=== PATIENT | male | born 1960 | race Caucasian/White ===

== ENCOUNTER 2018-10-10 10:30 | Inpatient (IN) | payer BC ==
[~2018-10-10] VITALS: Ht 180.3 cm; Wt 80.0 kg
--- NOTE | 2018-10-10 11:37 | HP ---
DATE OF ADMISSION: 10/10/2018 IDENTIFYING DATA: The patient is a 57-year-old male being admitted to the hospital with apparent fat igue, mildly abnormal liver tests, markedly reduced appetite. HISTORICAL EVENTS: The patient was initially evaluated ____ 10/04/2018 when he admitted to a 23-week history of modest fatigue with increasing blood sugars in the excess of 200. He initially lost abou t 7 pounds during his last 2 months, unaccompanied by orthostatic dizziness, lightheadedness. He had no exertional shortness of breath, chest pain, palpitations, no leg edema and at that time had no ab dominal pain. His examination with respect to cardiopulmonary and GI exam was unrevealing. Laborato ry studies I obtained on 10/04/2018 included random sugar of 191. His creatinine was 1.6. Electroly kacie were normal. ALT and AST were 143 and 160 respectively. Alkaline phosphatase was normal. Bilir ubin was normal. Hemoglobin A1c had increased from 6.4 to 7.4. Thyroid function was normal. CBC wa s normal at differential. Platelet count was normal. After seeing the latter laboratory tests, I batista d the opportunity to include a liver panel and his ALT fell to 79, AST fell to 54 and acute hepatitis panel was unrevealing. Close questioning revealed the possibility that he was drinking alcohol. Ad ditional questioning this evening revealed him to having had little solid or liquid intake. Appetite remained markedly reduced. He had no vomiting, but had a sense of tenesmus with frequent liquid sto ols without symptoms of gastrointestinal bleeding. He continued to be weak and denied any pathologic cardiopulmonary symptoms. He denied dysuria, hematuria, frequency, flank pain, fever or chills. PAST MEDICAL HISTORY: Includes: 1. Diabetes, adult onset, first detected in 05/2007. 2. History of pancreatitis in 11/2010 with the antecedent modest intake of alcohol. 3. Hyperlipidemia. 4. Hypertension. 5. History of nephrolithiasis with transient obstruction of his right kidney on 03/25/2018. 6. History of bladder stone, requiring cystoscope and retrograde study. Stone was removed at that t vinh. He did have evidence again of mild left hydronephrosis. This resolved after the stone was renée mike. 7. Vitamin D deficiency. SOCIAL HISTORY: . He is an assistant prosecuting attorney. He does drink alcohol. He does not smoke. PRESENT MEDICATIONS: Include: 1. Baby aspirin 81 mg per day. 2. Xanax 0.5 t.i.d. p.r.n. 3. Metoprolol XL 100 per day. 4. Tamsulosin 0.4 per day. 5. Zestril 20 mg per day. ALLERGIES: 1. AMBIEN. 2, ____ PHYSICAL EXAMINATION: GENERAL: Chronically ill-appearing male. VITAL SIGNS: BP 121/78, pulse 80, respirations were 18. He was afebrile. HEENT: Eyes: Extraocular muscles were full. Nose, mouth and throat are normal. NECK: Supple. There was no jugular venous distention, thyroid enlargement or adenopathy. LUNGS: Clear. HEART: Rhythm regular. No murmur. ABDOMEN: Slight distention. No organomegaly. Equivocal 1+ epigastric tenderness. No lower quadran t tenderness. EXTREMITIES: No edema. Calves are nontender. NEUROLOGIC: No lateralizing motor weakness. IMPRESSION: 1. Modest fatigue. Transient abnormal liver tests are improving. I think likely related to alcohol . I think there is a major component of depression but given tenesmus and still frequent loose stool s, I worry about colitis. 2. Diabetes, controlled optimal. We will resume metformin. PLAN: Admit. CT of the abdomen and pelvis will be needed. GI consultation will be obtained. Psych iatric evaluation may be needed given some recent concerns with my discussion with him that he felt l minnie living condition was unimportant. Dictated By: BERNARD LUNA/LETICIA Conf#: [id number] DID#: [id number]
[2018-10-10 11:41] VITALS: BP 133/77; PULSE 70; RESP 18
[2018-10-10 11:47] VITALS: Ht 180.3 cm; Wt 80.0 kg
[2018-10-10] MEDS ORDERED: ZOLPIDEM 5 MG TAB PO PRN (13:00)
[2018-10-10] MEDS ORDERED: NACL 0.9% 3 ML SYG IV SCH (13:00)
[2018-10-10] MEDS ORDERED: LISINOPRIL 20 MG TAB PO SCH (13:30)
[2018-10-10] MEDS: ALPRAZOLAM 0.5 MG TAB PO PRN (16:00)
[2018-10-10] MEDS: METOPROLOL (XL) 50 MG TAB PO SCH ×2 (16:00→22:41)
[2018-10-10] MEDS: SOD CHLORIDE 0.9% 1,000 ML IV SCH (16:01)
[2018-10-10] MEDS: INSULIN ASPART [NOVOLOG] 3 ML PEN SC SCH (17:25)
[2018-10-10] MEDS ORDERED: MAGNESIUM SULFATE 4 GM/100 ML 100 ML IVPB ONE (18:00)
[2018-10-10] MEDS ORDERED: METOCLOPRAMIDE 10 MG TAB PO PRN (18:30)
[2018-10-10] MEDS ORDERED: IOHEXOL 14.3 MG(I)/ML (ADULT) BTL PO ONE (18:30)
[2018-10-10 19:59] VITALS: BP 139/84; PULSE 57; RESP 18
[2018-10-10] MEDS: TAMSULOSIN (SR) 0.4 MG CAP PO SCH (20:17)
--- NOTE | 2018-10-10 21:03 | CONS ---
DATE OF ADMISSION: 10/10/2018 DATE OF CONSULTATION: 10/10/2018 TYPE OF CONSULTATION: Preoperative gastroenterology. Dear Dr. Sanders, Thank you for asking me to see Mr. Gu in GI consultation. 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 He says this past 2 weeks, he has been having i ncreasing history of vomiting, mostly whenever he drinks water, even after eating food and no history of vomiting blood. Usually vomiting can occur any time including an empty stomach and after eating also, vomiting can occur with no history of having any blood. He has got diarrhea for the past 2 wee ks. Sometimes, he has tenesmus. When he goes to bathroom, no stool comes out, just a feeling of hav ing to have a bowel movement. No rectal bleeding, no bloody stool. He drinks alcohol 2 to 3 times a week. He denies that he is an alcoholic. He has history of diabetes and he also has a history of having pancreatitis in 2010, probably due to alcoholic pancreatitis, dyslipidemia, hypertension, history of nephrolithiasis, and he had a right ki dney surgery in 2018. He also has a history of bladder stone. MEDICATIONS: Of concern prior to the admission, he was on: 1. Aspirin. 2. Xanax. 3. Metoprolol. 4. Tamsulosin. 5. Zestril. PAST MEDICAL HISTORY: He has no history of jaundice, no history of prior colonoscopy. PAST SURGICAL HISTORY: As for the surgeries, I am concerned that as mentioned above, he had a kidney surgery for obstructed stone and infection. REVIEW OF SYSTEMS: Also essentially as mentioned above. PHYSICAL EXAMINATION: GENERAL: The patient is a 57-year-old white gentleman who at this time is pretty alert, is well buil t, is afebrile. CARDIOVASCULAR: Normal heart sounds. RESPIRATORY: Normal breath sounds. ABDOMEN: Shows soft abdomen, no palpable masses, no tenderness, no distention. VITAL SIGNS: Temperature 98.8, pulse is 70, blood pressure 133/77. LABORATORY WORKUP: WBC count 9400, hemoglobin 13.7. The serum AST is 469, ALT is 274, alkaline phos phatase is 90. Amylase is 78. Lipase is 764. Ferritin 2050. Vitamin B12 1000. TSH is 1.030, pota ssium 3.9, creatinine 2.74, BUN 47. IMAGING STUDIES: The chest x-ray shows no acute process. Ultrasound of the upper abdomen shows echo genic course liver which could be hepatic steatosis. Underlying hepatocellular disease cannot be exc luded. No biliary dilatation, no cholelithiasis. CLINICAL IMPRESSION: The patient presenting with history of persistent vomiting and persistent diarr hea. It is quite possible that persistent vomiting could be secondary to diabetic gastroparesis. Ce rtainly, gastroesophageal reflux disease, peptic ulcer disease must be considered. Dayna of the es ophagus should be considered. As far as the diarrhea is concerned, inflammatory bowel disease is a good possibility. Colorectal ne oplasm should be considered. I doubt if we are dealing with C. difficile colitis, but certainly C. d ifficile in the stool will be examined. Based on the fact that he has got abnormal liver functions and elevated lipase, it is quite possible we may be dealing with alcoholic pancreatitis and alcoholic liver disease. He probably has alcoholic cirrhosis with steatohepatitis. Viral hepatitis have been negative so viral etiology of the hepatit is is unlikely. He has a history of hypertension and diabetes. PLAN: At the outset, I recommend CAT scan of the upper abdomen and pelvis to rule out pancreatitis, cirrhosis, rule out choledocholithiasis. MRCP will also be ordered to rule out choledocholithiasis and biliary tract disease. MRCP will be really helpful to evaluate hepatobiliary pancreatic system. Stool for C. difficile will be obtained. The patient will probably need an EGD and colonoscopy. Meanwhile, Protonix can be continued and symp tomatic treatment with Reglan can be can be done and I will be happy to follow this patient with you. Once again, doctor, thank you for this consultation. Dictated By: SHANNA KHALIL MD NC/NTS Conf#: [id number] DID#: [id number] CC: BERNARD SANDERS MD;*EndCC*
[2018-10-11 01:50] VITALS: BP 137/75; PULSE 55; RESP 18
[2018-10-11] MEDS: SOD CHLORIDE 0.9% 1,000 ML IV SCH (02:00)
[2018-10-11] MEDS: ACCU-CHEK XX SCH (02:00)
[2018-10-11] MEDS ORDERED: POTASSIUM CHLORIDE (SR) 20 MEQ TAB PO ONE (05:34)
[2018-10-11] MEDS ORDERED: PANTOPRAZOLE 40 MG INJ IV SCH (06:00)
[2018-10-11] MEDS: PANTOPRAZOLE (EC) 40 MG TAB PO SCH (06:15)
[2018-10-11 07:11] VITALS: BP 117/67; PULSE 52; RESP 14
[2018-10-11] MEDS: METOPROLOL (XL) 50 MG TAB PO SCH ×2 (09:00→21:09)
[2018-10-11] MEDS: INSULIN ASPART [NOVOLOG] 3 ML PEN SC SCH ×3 (09:01→17:53)
--- NOTE | 2018-10-11 11:19 | PN ---
Date/Time of Note Date/Time of Note DATE: 10/11/18 TIME: 11:07 Assessment/Plan VTE Prophylaxis Risk score (from [facility])>0 risk: 2 SCD applied (from [facility]): No SCD contraindicated: low risk/ambulating Pharmacological prophylaxis: other Pharm contraindication: other Lines/Catheters IV Catheter Type (from [facility]): Peripheral IV Urinary Cath still in place: No Assessment/Plan Hospital Course 1. Diarrhea. He continues to have profuse diarrhea. He denies abdominal pain . Stool for culture and C. difficile toxin are pending. 2. Pancreatitis with elevated lipase level . Pancreatic insufficiency could be causing his diarrhea 3.. Elevated liver enzymes, they are lower today. High iron, iron saturation, and ferritin. Could be consistent with hemochromatosis. 4. Anemia, his hemoglobin is drifting down , he has not had any obvious GI blee ding. I suspect the lower hemoglobin today is due to rehydration. 5. Acute renal failure. His urine sodium is low and this is consistent with dehydration/volume depletion. He is getting IV fluids to replete him. Potassium and magnesium are low and have been replaced. Result Diagram: 10/11/18 0429 10/11/18 0428 Results 24hrs Laboratory Tests Test 10/10/18 14:10 10/10/18 17:32 10/10/18 19:09 10/10/18 20:54 White Blood Count 9.4 Red Blood Count 4.24 L Hemoglobin 13.7 L Hematocrit 39.3 L Mean Corpuscular Volume 92.7 Mean Corpuscular 32.3 Hemoglobin Mean Corpuscular 34.9 Hemoglobin Concent Red Cell Distribution 13.2 Width Platelet Count 360 Mean Platelet Volume 9.3 Immature Granulocytes % 0.300 Neutrophils % 74.1 Lymphocytes % 17.1 Monocytes % 6.6 Eosinophils % 1.3 Basophils % 0.6 Nucleated Red Blood 0.0 Cells % Immature Granulocytes # 0.030 Neutrophils # 7.0 Lymphocytes # 1.6 Monocytes # 0.6 Eosinophils # 0.1 Basophils # 0.1 Nucleated Red Blood 0.0 Cells # Erythrocyte 5 Sedimentation Rate Sodium Level 141 Potassium Level 3.9 Chloride Level 105 Carbon Dioxide Level 25 Anion Gap 11 Blood Urea Nitrogen 47 H Creatinine 2.74 H Est Glomerular Filtrat 24 L Rate mL/min Glucose Level 124 Calcium Level 8.7 Phosphorus Level 4.3 Magnesium Level 1.1 L Iron Level 171 H Total Iron Binding 177 L Capacity Percent Iron Saturation 97 H Ferritin 2050.0 H Total Bilirubin 0.6 Direct Bilirubin 0.00 Indirect Bilirubin 0.6 Aspartate Amino 469 H Transf (AST/SGOT) Alanine 274 H Aminotransferase (ALT/SG PT) Alkaline Phosphatase 90 Total Protein 6.5 Albumin 3.4 Globulin 3.10 Albumin/Globulin Ratio 1.09 Amylase Level 78 Lipase 764 H Alpha Fetoprotein 1.39 Carcinoembryonic Antigen 3.8 CA 19-9 Antigen 59.6 H Vitamin B12 Level > 1000 H Thyroid Stimulating 1.030 Hormone (TSH) Ethyl Alcohol Level < 10.0 H Bedside Glucose 138 128 Prothrombin Time 13.1 Prothrombin Time Ratio 1.0 INR International 0.98 Normalized Ratio Activated 27.8 Partial Thromboplast Time Test 10/10/18 22:45 10/10/18 23:01 10/11/18 03:58 10/11/18 04:28 Urine Color YELLOW Urine Clarity CLEAR Urine pH 6.0 Urine Specific Peck 1.010 Urine Ketones NEGATIVE Urine Nitrite NEGATIVE Urine Bilirubin NEGATIVE Urine Urobilinogen NEGATIVE Urine Leukocyte Esterase NEGATIVE Urine Hemoglobin NEGATIVE Urine Random Creatinine 87.51 Urine Random Sodium 23 L Urine Protein/Creatinine 0.15 Ratio Urine Glucose NEGATIVE Urine Total Protein 14.0 H Stool Occult Blood NEGATIVE Magnesium Level 2.6 #H 2.2 Bedside Glucose 140 Sodium Level 137 Potassium Level 2.7 *L Chloride Level 105 Carbon Dioxide Level 20 L Anion Gap 12 Blood Urea Nitrogen 35 #H Creatinine 2.07 H Est Glomerular Filtrat 33 L Rate mL/min Glucose Level 125 Calcium Level 7.8 L Phosphorus Level 2.8 Ferritin 1680.0 H Total Bilirubin 1.7 H Direct Bilirubin 0.00 Indirect Bilirubin 1.7 H Aspartate Amino 252 H Transf (AST/SGOT) Alanine 208 H Aminotransferase (ALT/SG PT) Alkaline Phosphatase 71 Total Protein 5.7 L Albumin 2.8 L Globulin 2.90 Albumin/Globulin Ratio 0.96 Test 10/11/18 04:29 10/11/18 08:41 White Blood Count 7.3 # Red Blood Count 3.74 L Hemoglobin 11.8 L Hematocrit 34.6 L Mean Corpuscular Volume 92.5 Mean Corpuscular 31.6 Hemoglobin Mean Corpuscular 34.1 Hemoglobin Concent Red Cell Distribution 13.3 Width Platelet Count 302 Mean Platelet Volume 9.6 Immature Granulocytes % 0.600 H Neutrophils % 55.4 Lymphocytes % 31.4 Monocytes % 8.3 Eosinophils % 3.6 Basophils % 0.7 Nucleated Red Blood 0.0 Cells % Immature Granulocytes # 0.040 H Neutrophils # 4.0 Lymphocytes # 2.3 Monocytes # 0.6 Eosinophils # 0.3 Basophils # 0.1 Nucleated Red Blood 0.0 Cells # Hemoglobin A1c 6.8 H Iron Level 135 Total Iron Binding 175 L Capacity Percent Iron Saturation 77 H Bedside Glucose 118 Subjective 24 Hr Interval Summary Free Text/Dictation This patient is being seen in medical follow-up. He is awake and alert. He does have diarrhea which is profuse and frequent. He denies abdominal pain. He does complain of left ankle pain. Respiratory: no complaints Cardiovascular: no complaints Gastrointestinal: decreased appetite, diarrhea Genitourinary: no complaints Musculoskeletal: no complaints Skin: no complaints Neurologic: no complaints Exam/Review of Systems Exam Vitals Vital Signs Date Temp Pulse Resp B/P (MAP) Pulse Ox O2 O2 Flow FiO2 Time Delivery Rate 10/11/18 98.0 52 14 117/67 100 Room Air 07:11 (84) Intake and Output 10/10/18 10/10/18 10/11/18 1515:00 23:00 07:00 IntakeIntake Total 2080 ml 900 ml BalanceBalance 2080 ml 900 ml Constitutional: alert, oriented, frail Respiratory: clear to auscultation Cardiovascular: regular rate and rhythm Gastrointestinal: soft, non-tender, bowel sounds Musculoskeletal: nl extremities to inspection Results Results 24hrs Laboratory Tests Test 10/10/18 14:10 10/10/18 17:32 10/10/18 19:09 10/10/18 20:54 White Blood Count 9.4 Red Blood Count 4.24 L Hemoglobin 13.7 L Hematocrit 39.3 L Mean Corpuscular Volume 92.7 Mean Corpuscular 32.3 Hemoglobin Mean Corpuscular 34.9 Hemoglobin Concent Red Cell Distribution 13.2 Width Platelet Count 360 Mean Platelet Volume 9.3 Immature Granulocytes % 0.300 Neutrophils % 74.1 Lymphocytes % 17.1 Monocytes % 6.6 Eosinophils % 1.3 Basophils % 0.6 Nucleated Red Blood 0.0 Cells % Immature Granulocytes # 0.030 Neutrophils # 7.0 Lymphocytes # 1.6 Monocytes # 0.6 Eosinophils # 0.1 Basophils # 0.1 Nucleated Red Blood 0.0 Cells # Erythrocyte 5 Sedimentation Rate Sodium Level 141 Potassium Level 3.9 Chloride Level 105 Carbon Dioxide Level 25 Anion Gap 11 Blood Urea Nitrogen 47 H Creatinine 2.74 H Est Glomerular Filtrat 24 L Rate mL/min Glucose Level 124 Calcium Level 8.7 Phosphorus Level 4.3 Magnesium Level 1.1 L Iron Level 171 H Total Iron Binding 177 L Capacity Percent Iron Saturation 97 H Ferritin 2050.0 H Total Bilirubin 0.6 Direct Bilirubin 0.00 Indirect Bilirubin 0.6 Aspartate Amino 469 H Transf (AST/SGOT) Alanine 274 H Aminotransferase (ALT/SG PT) Alkaline Phosphatase 90 Total Protein 6.5 Albumin 3.4 Globulin 3.10 Albumin/Globulin Ratio 1.09 Amylase Level 78 Lipase 764 H Alpha Fetoprotein 1.39 Carcinoembryonic Antigen 3.8 CA 19-9 Antigen 59.6 H Vitamin B12 Level > 1000 H Thyroid Stimulating 1.030 Hormone (TSH) Ethyl Alcohol Level < 10.0 H Bedside Glucose 138 128 Prothrombin Time 13.1 Prothrombin Time Ratio 1.0 INR International 0.98 Normalized Ratio Activated 27.8 Partial Thromboplast Time Test 10/10/18 22:45 10/10/18 23:01 10/11/18 03:58 10/11/18 04:28 Urine Color YELLOW Urine Clarity CLEAR Urine pH 6.0 Urine Specific Peck 1.010 Urine Ketones NEGATIVE Urine Nitrite NEGATIVE Urine Bilirubin NEGATIVE Urine Urobilinogen NEGATIVE Urine Leukocyte Esterase NEGATIVE Urine Hemoglobin NEGATIVE Urine Random Creatinine 87.51 Urine Random Sodium 23 L Urine Protein/Creatinine 0.15 Ratio Urine Glucose NEGATIVE Urine Total Protein 14.0 H Stool Occult Blood NEGATIVE Magnesium Level 2.6 #H 2.2 Bedside Glucose 140 Sodium Level 137 Potassium Level 2.7 *L Chloride Level 105 Carbon Dioxide Level 20 L Anion Gap 12 Blood Urea Nitrogen 35 #H Creatinine 2.07 H Est Glomerular Filtrat 33 L Rate mL/min Glucose Level 125 Calcium Level 7.8 L Phosphorus Level 2.8 Ferritin 1680.0 H Total Bilirubin 1.7 H Direct Bilirubin 0.00 Indirect Bilirubin 1.7 H Aspartate Amino 252 H Transf (AST/SGOT) Alanine 208 H Aminotransferase (ALT/SG PT) Alkaline Phosphatase 71 Total Protein 5.7 L Albumin 2.8 L Globulin 2.90 Albumin/Globulin Ratio 0.96 Test 10/11/18 04:29 10/11/18 08:41 White Blood Count 7.3 # Red Blood Count 3.74 L Hemoglobin 11.8 L Hematocrit 34.6 L Mean Corpuscular Volume 92.5 Mean Corpuscular 31.6 Hemoglobin Mean Corpuscular 34.1 Hemoglobin Concent Red Cell Distribution 13.3 Width Platelet Count 302 Mean Platelet Volume 9.6 Immature Granulocytes % 0.600 H Neutrophils % 55.4 Lymphocytes % 31.4 Monocytes % 8.3 Eosinophils % 3.6 Basophils % 0.7 Nucleated Red Blood 0.0 Cells % Immature Granulocytes # 0.040 H Neutrophils # 4.0 Lymphocytes # 2.3 Monocytes # 0.6 Eosinophils # 0.3 Basophils # 0.1 Nucleated Red Blood 0.0 Cells # Hemoglobin A1c 6.8 H Iron Level 135 Total Iron Binding 175 L Capacity Percent Iron Saturation 77 H Bedside Glucose 118 Medications Medication Current Medications IV Flush (NS 3 ml) 3 ml PER PROTOCOL IV ; Start 10/10/18 at 13:00 Ondansetron HCl (Zofran Inj) 4 mg Q6H PRN IV NAUSEA/VOMITING; Start 10/10/18 at 13:00 Zolpidem Tartrate (Ambien) 5 mg QHS PRN PO .INSOMNIA Last administered on 10/10/18at 23:19; Admin Dose 5 MG; Start 10/10/18 at 13:00 Alprazolam (Xanax) 0.5 mg Q8H PRN PO ANXIETY Last administered on 10/10/18at 16:00; Admin Dose 0.5 MG; Start 10/10/18 at 13:00 Metoprolol Succinate (Toprol Xl) 50 mg BID PO Last administered on 10/10/18at 22:41; Admin Dose 50 MG; Start 10/10/18 at 13:30 Tamsulosin HCl (Flomax) 0.4 mg HS PO Last administered on 10/10/18at 20:17; Admin Dose 0.4 MG; Start 10/10/18 at 21:00 Diagnostic Test (Pha) (Accu-Chek) 1 ea 02 XX ; Start 10/11/18 at 02:00 Insulin Aspart (Novolog Insulin Pen) NOVOLOG *MILD* ALGORI... AC MEALS SC ; Start 10/10/18 at 17:25 Pantoprazole (Protonix Tab) 40 mg DAILY@06 PO Last administered on 10/11/18at 06:15; Admin Dose 40 MG; Start 10/11/18 at 06:00 Metoclopramide HCl (Reglan) 10 mg Q6H PRN PO vomiting; Start 10/10/18 at 18:30 Potassium Chloride/Sodium Chloride 1,000 ml @ 125 mls/hr Q8H IV ; Start 10/11/18 at 12:00 NEYDA SEO MD Oct 11, 2018 11:18
[2018-10-11] MEDS ORDERED: ACETAMINOPHEN 500 MG TAB PO PRN (11:30)
[2018-10-11] MEDS ORDERED: GLUCOSE GEL 15 GRAM TUBE PO PRN ×2 (12:00)
[2018-10-11] MEDS ORDERED: GLUCOSE GEL 15 GRAM TUBE BUCCAL PRN (12:00)
[2018-10-11] MEDS ORDERED: DEXTROSE 50% 50 ML SYRINGE IV PRN ×2 (12:00)
[2018-10-11] MEDS ORDERED: GLUCAGON 1 MG INJ IM PRN (12:00)
[2018-10-11] MEDS: NS + KCL 20 MEQ 1,000 ML IV SCH ×3 (12:00→21:57)
[2018-10-11] MEDS: ALPRAZOLAM 0.5 MG TAB PO PRN ×2 (12:08→21:07)
[2018-10-11] MEDS ORDERED: POTASSIUM CHLORIDE (SR) 20 MEQ TAB PO STA (14:01)
[2018-10-11 14:29] VITALS: BP 153/80; PULSE 54; RESP 16
[2018-10-11] MEDS ORDERED: LOPERAMIDE 2 MG CAP PO PRN (14:30)
--- NOTE | 2018-10-11 15:01 | RADRPT ---
Vent Rate: 50 bpm RR Interval: 1204 msec WI Interval: 229 msec QRS Duration: 102 msec QT Interval: 473 msec QTC Interval: 431 msec P-R-T [place]: 14 - 12 - 32 degrees Sinus rhythm...normal P axis, V-rate 50- 99 Prolonged WI interval...WI >210, V-rate 50- 90 Low voltage, precordial leads...precordial leads <1.0mV Electronically Signed By: Rodrigo Lee
[2018-10-11 19:35] VITALS: BP 141/78; PULSE 58; RESP 20
[2018-10-11] MEDS: TAMSULOSIN (SR) 0.4 MG CAP PO SCH (21:07)
[2018-10-11] MEDS: ZOLPIDEM 5 MG TAB PO PRN (21:57)
[2018-10-12] VITALS (24 sets, daily range): BP systolic 97–145; BP diastolic 59–83; PULSE 50–114; RESP 12–28
[2018-10-12] MEDS: ACCU-CHEK XX SCH (02:00)
[2018-10-12] MEDS: POTASSIUM CHLORIDE 50 ML IVPB SCH ×3 (05:50→10:16)
[2018-10-12] MEDS: NS + KCL 20 MEQ 1,000 ML IV SCH (05:50)
[2018-10-12] MEDS: PANTOPRAZOLE (EC) 40 MG TAB PO SCH (06:00)
[2018-10-12] MEDS: INSULIN ASPART [NOVOLOG] 3 ML PEN SC SCH ×3 (07:20→17:25)
--- NOTE | 2018-10-12 08:37 | PN ---
Date/Time of Note Date/Time of Note DATE: 10/12/18 TIME: 08:32 Assessment/Plan VTE Prophylaxis Risk score (from Ns)>0 risk: 1 SCD applied (from [facility]): Yes SCD contraindicated: other (instrumentation today) Pharmacological prophylaxis: NA/contraindicated Pharm contraindication: surgical contra Lines/Catheters IV [facility]ter Type (from [facility] Peripheral IV Urinary Cath still in place: No Assessment/Plan Assessment/Plan 1. Abnl liver tests unclear cause, rev ultz, ct abd-pelvis and mri, acute hep panel is neg, ?? CMV, EB, I have asked ID to see as well 2. Diarrhea and tenesmus, colon and endo planned today, c diff was neg 3. ARF improving, labs pending today, baseline Scr 1.4-1.6 (nephrosclerosis) 4. Abnl iron studies, will rev in office as prior iron studies were unremarkable, I have asked heme to see 5. Elev CA 19-9 prob sec pancreatitis, 6. DM, sugar is acceptable 7. BP is controlled 8. Will need dvt prophyl once gi studies completed. 9. Cant dc until able to eat solids and ambulate Result Diagram: 10/11/18 0429 10/12/18 0425 Results 24hrs Laboratory Tests Test 10/11/18 08:41 10/11/18 11:05 10/11/18 13:56 10/11/18 17:50 Bedside Glucose 118 153 177 Potassium Level 3.3 L Test 10/11/18 21:18 10/12/18 04:25 10/12/18 08:05 Bedside Glucose 134 107 Potassium Level 3.5 Subjective 24 Hr Interval Summary Respiratory: No cough, No shortness of breath Cardiovascular: No chest pain, No lightheadedness Gastrointestinal: other (mild tenesmus and diarrhea) Genitourinary: no complaints Musculoskeletal: no complaints, other (c/o left ankle pain) Skin: no complaints Neurologic: other; No confusion Exam/Review of Systems Exam Vitals Vital Signs Date Temp Pulse Resp B/P (MAP) Pulse Ox O2 O2 Flow FiO2 Time Delivery Rate 10/12/18 98.1 50 18 137/60 99 Room Air 07:22 (85) Intake and Output 10/11/18 10/11/18 10/12/18 1515:00 23:00 07:00 IntakeIntake Total 680 ml 865 ml 950 ml BalanceBalance 680 ml 865 ml 950 ml Neck: No jvd Respiratory: clear to auscultation Cardiovascular: regular rate and rhythm Gastrointestinal: soft; No hepatomegaly, No splenomegaly Musculoskeletal: other (left ankle is without redness or heat, sl discomfort with flex and ext) Extremities: No edema, No tenderness Results Results 24hrs Laboratory Tests Test 10/11/18 08:41 10/11/18 11:05 10/11/18 13:56 10/11/18 17:50 Bedside Glucose 118 153 177 Potassium Level 3.3 L Test 10/11/18 21:18 10/12/18 04:25 10/12/18 08:05 Bedside Glucose 134 107 Potassium Level 3.5 Medications Medication Current Medications IV Flush (NS 3 ml) 3 ml PER PROTOCOL IV ; Start 10/10/18 at 13:00 Ondansetron HCl (Zofran Inj) 4 mg Q6H PRN IV NAUSEA/VOMITING; Start 10/10/18 at 13:00 Alprazolam (Xanax) 0.5 mg Q8H PRN PO ANXIETY Last administered on 10/11/18at 21:07; Admin Dose 0.5 MG; Start 10/10/18 at 13:00 Metoprolol Succinate (Toprol Xl) 50 mg BID PO Last administered on 10/11/18at 21:09; Admin Dose 50 MG; Start 10/10/18 at 13:30 Tamsulosin HCl (Flomax) 0.4 mg HS PO Last administered on 10/11/18at 21:07; Admin Dose 0.4 MG; Start 10/10/18 at 21:00 Diagnostic Test (Pha) (Accu-Chek) 1 ea 02 XX ; Start 10/11/18 at 02:00 Insulin Aspart (Novolog Insulin Pen) NOVOLOG *MILD* ALGORI... AC MEALS SC Last administered on 10/11/18at 17:53; Admin Dose 1 UNIT; Start 10/10/18 at 17:25 Pantoprazole (Protonix Tab) 40 mg DAILY@06 PO Last administered on 10/11/18at 06:15; Admin Dose 40 MG; Start 10/11/18 at 06:00 Metoclopramide HCl (Reglan) 10 mg Q6H PRN PO vomiting; Start 10/10/18 at 18:30 Potassium Chloride/Sodium Chloride 1,000 ml @ 125 mls/hr Q8H IV Last administered on 10/12/18at 05:50; Admin Dose 125 MLS/HR; Start 10/11/18 at 12:00 Acetaminophen (Tylenol Tab) 1,000 mg Q8H PRN PO MILD PAIN(1-3)OR ELEVATED TEMP; Start 10/11/18 at 11:30 Miscellaneous Information 1 ea NOTE XX ; Start 10/11/18 at 12:00 Glucose (Glutose) 15 gm Q15M PRN PO DECREASED GLUCOSE; Start 10/11/18 at 12:00 Glucose (Glutose) 22.5 gm Q15M PRN PO DECREASED GLUCOSE; Start 10/11/18 at 12:00 Dextrose (D50w Syringe) 25 ml Q15M PRN IV DECREASED GLUCOSE; Start 10/11/18 at 12:00 Dextrose (D50w Syringe) 50 ml Q15M PRN IV DECREASED GLUCOSE; Start 10/11/18 at 12:00 Glucagon (Glucagen) 1 mg Q15M PRN IM DECREASED GLUCOSE; Start 10/11/18 at 12:00 Glucose (Glutose) 15 gm Q15M PRN BUCCAL DECREASED GLUCOSE; Start 10/11/18 at 12:00 Loperamide HCl (Imodium Cap) 2 mg Q6H PRN PO DIARRHEA Last administered on 10/11/18at 14:19; Admin Dose 2 MG; Start 10/11/18 at 14:30 Zolpidem Tartrate (Ambien) 5 mg HS MAY REPEAT X 1 PRN PO INSOMNIA Last administered on 10/11/18at 21:57; Admin Dose 5 MG; Start 10/11/18 at 21:00 BERNARD SANDERS MD Oct 12, 2018 08:37
[2018-10-12] MEDS: METOPROLOL (XL) 50 MG TAB PO SCH ×2 (09:00→22:25)
--- NOTE | 2018-10-12 10:38 | CONS ---
Assessment/Plan Assessment/Plan Hospital Course (Demo Recall) 1) pancreatitis with liver inflammation CT and MRI only show fatty liver pt states he is only a social drinker and no alcohol for 10 days his CBC dif does not show an increase in his lymphocytes or monocytes which make a viral etiology less likely no classic symptoms for a viral disease other than his sore throat 3 weeks ago but his symptoms pre date that his ESR is WNL doubt he has CMV or EBV but CMV can cause pancreatitis will check CMV and EBV serology and get CMV pcr will also check RPR, parvo B19 upper and lower endoscopy is planned liver enzymes and pancreatis enzymes are improving 2) ARF urine does not suggest infection this is improving with hydration Consultation Date/Type/Reason Admit Date/Time Oct 10, 2018 at 11:07 Date of Consultation: Oct 12, 2018 Type of Consult ID Date/Time of Note DATE: 10/12/18 TIME: 10:20 Hx of Present Illness pt admitted with fatigue and weight loss for months he states he usually vomits in the a.m. for years he denies generalized muscle aches but has noticed L ankle swelling and R big toe swelling but neither currently no rashes, dysuria. he has had some mild kidney pain but not epigastric pain no coryza he had sore throat about 3 weeks ago that resolved with antibiotics and steroids off an on diarrhea for years no foreign travel, he has an old dog but no tick bites that he is aware of Past Medical History DM, HTN, hyperlipidemia, hx of kidney stone with blockage Medications Current Medications IV Flush (NS 3 ml) 3 ml PER PROTOCOL IV ; Start 10/10/18 at 13:00 Ondansetron HCl (Zofran Inj) 4 mg Q6H PRN IV NAUSEA/VOMITING; Start 10/10/18 at 13:00 Alprazolam (Xanax) 0.5 mg Q8H PRN PO ANXIETY Last administered on 10/11/18at 21:07; Admin Dose 0.5 MG; Start 10/10/18 at 13:00 Metoprolol Succinate (Toprol Xl) 50 mg BID PO Last administered on 10/11/18at 21:09; Admin Dose 50 MG; Start 10/10/18 at 13:30 Tamsulosin HCl (Flomax) 0.4 mg HS PO Last administered on 10/11/18at 21:07; Admin Dose 0.4 MG; Start 10/10/18 at 21:00 Diagnostic Test (Pha) (Accu-Chek) 1 ea 02 XX ; Start 10/11/18 at 02:00 Insulin Aspart (Novolog Insulin Pen) NOVOLOG *MILD* ALGORI... AC MEALS SC Last administered on 10/11/18at 17:53; Admin Dose 1 UNIT; Start 10/10/18 at 17:25 Pantoprazole (Protonix Tab) 40 mg DAILY@06 PO Last administered on 10/11/18at 06:15; Admin Dose 40 MG; Start 10/11/18 at 06:00 Metoclopramide HCl (Reglan) 10 mg Q6H PRN PO vomiting; Start 10/10/18 at 18:30 Potassium Chloride/Sodium Chloride 1,000 ml @ 75 mls/hr [id number] IV Last administered on 10/12/18at 05:50; Admin Dose 125 MLS/HR; Start 10/11/18 at 12:00 Acetaminophen (Tylenol Tab) 1,000 mg Q8H PRN PO MILD PAIN(1-3)OR ELEVATED TEMP; Start 10/11/18 at 11:30 Miscellaneous Information 1 ea NOTE XX ; Start 10/11/18 at 12:00 Glucose (Glutose) 15 gm Q15M PRN PO DECREASED GLUCOSE; Start 10/11/18 at 12:00 Glucose (Glutose) 22.5 gm Q15M PRN PO DECREASED GLUCOSE; Start 10/11/18 at 12:00 Dextrose (D50w Syringe) 25 ml Q15M PRN IV DECREASED GLUCOSE; Start 10/11/18 at 12:00 Dextrose (D50w Syringe) 50 ml Q15M PRN IV DECREASED GLUCOSE; Start 10/11/18 at 12:00 Glucagon (Glucagen) 1 mg Q15M PRN IM DECREASED GLUCOSE; Start 10/11/18 at 12:00 Glucose (Glutose) 15 gm Q15M PRN BUCCAL DECREASED GLUCOSE; Start 10/11/18 at 12:00 Loperamide HCl (Imodium Cap) 2 mg Q6H PRN PO DIARRHEA Last administered on 10/11/18at 14:19; Admin Dose 2 MG; Start 10/11/18 at 14:30 Zolpidem Tartrate (Ambien) 5 mg HS MAY REPEAT X 1 PRN PO INSOMNIA Last administered on 10/11/18at 21:57; Admin Dose 5 MG; Start 10/11/18 at 21:00 Potassium Chloride (Klor-Con 10) 30 meq ONCE ONCE PO ; Start 10/12/18 at 15:00; Stop 10/12/18 at 15:01 Allergies: Coded Allergies: No Known Allergies (Verified Allergy, Unknown, 10/10/18) Social History Smoking Status: Never smoker Exam/Review of Systems Exam Vitals Vital Signs Date Temp Pulse Resp B/P (MAP) Pulse Ox O2 O2 Flow FiO2 Time Delivery Rate 10/12/18 98.1 50 18 137/60 99 Room Air 07:22 (85) Intake and Output 10/11/18 10/11/18 10/12/18 1515:00 23:00 07:00 IntakeIntake Total 680 ml 865 ml 1000 ml BalanceBalance 680 ml 865 ml 1000 ml Constitutional: alert, oriented Eyes: nl sclera ENMT: mucosa pink and moist Respiratory: clear to auscultation Cardiovascular: regular rate and rhythm Gastrointestinal: soft, non-tender Extremities: other (no swelling or redness to any joints) Results Result Diagram: 10/12/18 0811 10/12/18 0811 Results 24hrs Laboratory Tests Test 10/11/18 11:05 10/11/18 13:56 10/11/18 17:50 10/11/18 21:18 Potassium Level 3.3 L Bedside Glucose 153 177 134 Test 10/12/18 04:25 10/12/18 08:05 10/12/18 08:11 Potassium Level 3.5 3.7 Bedside Glucose 107 White Blood Count 6.7 Red Blood Count 3.35 L Hemoglobin 10.8 L Hematocrit 31.9 L Mean Corpuscular Volume 95.2 Mean Corpuscular 32.2 Hemoglobin Mean Corpuscular 33.9 Hemoglobin Concent Red Cell Distribution 13.4 Width Platelet Count 242 Mean Platelet Volume 9.6 Immature Granulocytes % 0.900 H Neutrophils % 60.5 Lymphocytes % 25.2 Monocytes % 9.1 Eosinophils % 3.9 Basophils % 0.4 Nucleated Red Blood 0.0 Cells % Immature Granulocytes # 0.060 H Neutrophils # 4.1 Lymphocytes # 1.7 Monocytes # 0.6 Eosinophils # 0.3 Basophils # 0.0 Nucleated Red Blood 0.0 Cells # Sodium Level 142 Chloride Level 117 H Carbon Dioxide Level 19 L Anion Gap 6 Blood Urea Nitrogen 19 # Creatinine 1.61 H Est Glomerular Filtrat 45 L Rate mL/min Glucose Level 107 Calcium Level 7.1 L Phosphorus Level 2.0 L Magnesium Level 1.8 Total Bilirubin 0.9 Direct Bilirubin 0.00 Indirect Bilirubin 0.9 Aspartate Amino 112 #H Transf (AST/SGOT) Alanine 135 H Aminotransferase (ALT/SG PT) Alkaline Phosphatase 65 Total Protein 5.3 L Albumin 2.5 L Globulin 2.80 Albumin/Globulin Ratio 0.89 Lipase 392 H Medications Medication Current Medications IV Flush (NS 3 ml) 3 ml PER PROTOCOL IV ; Start 10/10/18 at 13:00 Ondansetron HCl (Zofran Inj) 4 mg Q6H PRN IV NAUSEA/VOMITING; Start 10/10/18 at 13:00 Alprazolam (Xanax) 0.5 mg Q8H PRN PO ANXIETY Last administered on 10/11/18 21:07; Admin Dose 0.5 MG; Start 10/10/18 at 13:00 Metoprolol Succinate (Toprol Xl) 50 mg BID PO Last administered on 10/11/18at 2 1:09; Admin Dose 50 MG; Start 10/10/18 at 13:30 Tamsulosin HCl (Flomax) 0.4 mg HS PO Last administered on 10/11/18 21:07; Admin Dose 0.4 MG; Start 10/10/18 at 21:00 Diagnostic Test (Pha) (Accu-Chek) 1 ea 02 XX ; Start 10/11/18 at 02:00 Insulin Aspart (Novolog Insulin Pen) NOVOLOG *MILD* ALGORI... AC MEALS SC Last administered on 10/11/18at 17:53; Admin Dose 1 UNIT; Start 10/10/18 at 17:25 Pantoprazole (Protonix Tab) 40 mg DAILY@06 PO Last administered on 10/11/18 06:15; Admin Dose 40 MG; Start 10/11/18 at 06:00 Metoclopramide HCl (Reglan) 10 mg Q6H PRN PO vomiting; Start 10/10/18 at 18:30 Potassium Chloride/Sodium Chloride 1,000 ml @ 75 mls/hr [id number] IV Last administered on 10/12/18at 05:50; Admin Dose 125 MLS/HR; Start 10/11/18 at 12:00 Acetaminophen (Tylenol Tab) 1,000 mg Q8H PRN PO MILD PAIN(1-3)OR ELEVATED TEMP; Start 10/11/18 at 11:30 Miscellaneous Information 1 ea NOTE XX ; Start 10/11/18 at 12:00 Glucose (Glutose) 15 gm Q15M PRN PO DECREASED GLUCOSE; Start 10/11/18 at 12:00 Glucose (Glutose) 22.5 gm Q15M PRN PO DECREASED GLUCOSE; Start 10/11/18 at 12:00 Dextrose (D50w Syringe) 25 ml Q15M PRN IV DECREASED GLUCOSE; Start 10/11/18 at 12:00 Dextrose (D50w Syringe) 50 ml Q15M PRN IV DECREASED GLUCOSE; Start 10/11/18 at 12:00 Glucagon (Glucagen) 1 mg Q15M PRN IM DECREASED GLUCOSE; Start 10/11/18 at 12:00 Glucose (Glutose) 15 gm Q15M PRN BUCCAL DECREASED GLUCOSE; Start 10/11/18 at 12:00 Loperamide HCl (Imodium Cap) 2 mg Q6H PRN PO DIARRHEA Last administered on 10/11/18at 14:19; Admin Dose 2 MG; Start 10/11/18 at 14:30 Zolpidem Tartrate (Ambien) 5 mg HS MAY REPEAT X 1 PRN PO INSOMNIA Last administered on 10/11/18at 21:57; Admin Dose 5 MG; Start 10/11/18 at 21:00 Potassium Chloride (Klor-Con 10) 30 meq ONCE ONCE PO ; Start 10/12/18 at 15:00; Stop 10/12/18 at 15:01 LELO BEST MD Oct 12, 2018 10:31
[2018-10-12] MEDS ORDERED: ETOMIDATE 20 MG INJ ONE (13:11)
[2018-10-12] MEDS ORDERED: PROPOFOL 20 ML ONE (13:11)
[2018-10-12] MEDS ORDERED: PROPOFOL 200 MG INJ ONE (13:11)
--- NOTE | 2018-10-12 13:16 | PREAC ---
Date/Time of Note Date/Time of Note DATE: 10/12/18 TIME: 13:14 Anesthesia Eval and Record Evaluation Time Pre-Procedure Interview DATE: 10/12/18 TIME: 13:14 Age 57 Sex male NPO: 8 hrs Preoperative diagnosis nausea vomitting Planned procedure egd colonoscopy Past Medical History Past Medical History: Includes Cardio: HTN Endo: Diabetes Surgery & Anesthesia Issues No known issue Meds Anticoagulation: No Beta Jimena within 24 hr: Yes Current Medications IV Flush (NS 3 ml) 3 ml PER PROTOCOL IV ; Start 10/10/18 at 13:00 Ondansetron HCl (Zofran Inj) 4 mg Q6H PRN IV NAUSEA/VOMITING; Start 10/10/18 at 13:00 Alprazolam (Xanax) 0.5 mg Q8H PRN PO ANXIETY Last administered on 10/11/18at 21:07; Admin Dose 0.5 MG; Start 10/10/18 at 13:00 Metoprolol Succinate (Toprol Xl) 50 mg BID PO Last administered on 10/11/18at 21:09; Admin Dose 50 MG; Start 10/10/18 at 13:30 Tamsulosin HCl (Flomax) 0.4 mg HS PO Last administered on 10/11/18at 21:07; Admin Dose 0.4 MG; Start 10/10/18 at 21:00 Diagnostic Test (Pha) (Accu-Chek) 1 ea 02 XX ; Start 10/11/18 at 02:00 Insulin Aspart (Novolog Insulin Pen) NOVOLOG *MILD* ALGORI... AC MEALS SC Last administered on 10/11/18at 17:53; Admin Dose 1 UNIT; Start 10/10/18 at 17:25 Pantoprazole (Protonix Tab) 40 mg DAILY@06 PO Last administered on 10/11/18at 06:15; Admin Dose 40 MG; Start 10/11/18 at 06:00 Metoclopramide HCl (Reglan) 10 mg Q6H PRN PO vomiting; Start 10/10/18 at 18:30 Potassium Chloride/Sodium Chloride 1,000 ml @ 75 mls/hr [id number] IV Last administered on 10/12/18at 05:50; Admin Dose 125 MLS/HR; Start 10/11/18 at 12:00 Acetaminophen (Tylenol Tab) 1,000 mg Q8H PRN PO MILD PAIN(1-3)OR ELEVATED TEMP; Start 10/11/18 at 11:30 Miscellaneous Information 1 ea NOTE XX ; Start 10/11/18 at 12:00 Glucose (Glutose) 15 gm Q15M PRN PO DECREASED GLUCOSE; Start 10/11/18 at 12:00 Glucose (Glutose) 22.5 gm Q15M PRN PO DECREASED GLUCOSE; Start 10/11/18 at 12:00 Dextrose (D50w Syringe) 25 ml Q15M PRN IV DECREASED GLUCOSE; Start 10/11/18 at 12:00 Dextrose (D50w Syringe) 50 ml Q15M PRN IV DECREASED GLUCOSE; Start 10/11/18 at 12:00 Glucagon (Glucagen) 1 mg Q15M PRN IM DECREASED GLUCOSE; Start 10/11/18 at 12:00 Glucose (Glutose) 15 gm Q15M PRN BUCCAL DECREASED GLUCOSE; Start 10/11/18 at 12:00 Loperamide HCl (Imodium Cap) 2 mg Q6H PRN PO DIARRHEA Last administered on 10/11/18at 14:19; Admin Dose 2 MG; Start 10/11/18 at 14:30 Zolpidem Tartrate (Ambien) 5 mg HS MAY REPEAT X 1 PRN PO INSOMNIA Last administered on 10/11/18at 21:57; Admin Dose 5 MG; Start 10/11/18 at 21:00 Potassium Chloride (Klor-Con 10) 30 meq ONCE ONCE PO ; Start 10/12/18 at 15:00; Stop 10/12/18 at 15:01 Meds reviewed: Yes Allergies Coded Allergies: No Known Allergies (Verified Allergy, Unknown, 10/10/18) Allergies Reviewed: Yes Labs/Studies Labs Reviewed: Reviewed by anesthesiologist Result Diagram: 10/12/18 0811 10/12/18 0811 Laboratory Tests 10/12/18 08:11 test: N/A Pre-procedure Exam Last vitals Vital Signs Date Temp Pulse Resp B/P (MAP) Pulse Ox O2 O2 Flow FiO2 Time Delivery Rate 10/12/18 98.1 50 18 137/60 99 Room Air 07:22 (85) Airway: Adequate mouth opening Mallampati: Mallampati I Teeth: Normal Lung: Normal Heart: Normal Anticipated Difficutly with IV: Anticipate Difficult IV Access ASA Physical Status ASA physical status: 2 Emergency: None Planned Anesthetic General/MAC: MAC Pre-operative Attestations Prior to commencing anesthesia and surgery, the patient was re-evaluated, there was verification of: *The patient's identity *The results of appropriate recent lab work and preoperative vital signs *The above evaluation not changing prior to induction *Anesthetic plan, risk benefits, alternative and complications discussed with patient/family; questions answered; patient/family understands, accepts and wishes to proceed. CORINNE SCHRADER MD Oct 12, 2018 13:16
--- NOTE | 2018-10-12 14:17 | PAC ---
Date/Time of Note Date/Time of Note DATE: 10/12/18 TIME: 14:17 Post-Anesthesia Notes Post-Anesthesia Note Last documented vital signs Vital Signs Date Temp Pulse Resp B/P (MAP) Pulse Ox O2 O2 Flow FiO2 Time Delivery Rate 10/12/18 97.9 56 18 145/83 99 Room Air 13:00 (103) Activity: WNL Respiratory function: WNL Cardiovascular function: WNL Mental status: Baseline Pain reasonably controlled: Yes Hydration appropriate: Yes Nausea/Vomiting absent: Yes CORINNE SCHRADER MD Oct 12, 2018 14:17
[2018-10-12] MEDS ORDERED: POTASSIUM CHLORIDE (SR) 10 MEQ TAB PO ONE (15:00)
[2018-10-12] MEDS: ONDANSETRON 4 MG INJ IV PRN (19:00)
[2018-10-12] MEDS: ZOLPIDEM 5 MG TAB PO PRN (22:25)
[2018-10-12] MEDS: TAMSULOSIN (SR) 0.4 MG CAP PO SCH (22:25)
[2018-10-13 00:33] VITALS: BP 114/52; PULSE 104; RESP 20
[2018-10-13] MEDS: ALPRAZOLAM 0.5 MG TAB PO PRN ×3 (01:33→20:31)
[2018-10-13] MEDS: ACCU-CHEK XX SCH (02:00)
[2018-10-13] MEDS: NS + KCL 20 MEQ 1,000 ML IV SCH ×2 (04:36→13:51)
[2018-10-13] MEDS: PANTOPRAZOLE (EC) 40 MG TAB PO SCH (04:36)
[2018-10-13 07:29] VITALS: BP 102/51; PULSE 70; RESP 18
[2018-10-13] MEDS: METOPROLOL (XL) 50 MG TAB PO SCH ×2 (09:00→19:36)
[2018-10-13] MEDS: INSULIN ASPART [NOVOLOG] 3 ML PEN SC SCH ×3 (09:01→18:03)
--- NOTE | 2018-10-13 10:18 | PSY ---
Date/Time of Note Date/Time of Note DATE: 10/13/18 TIME: 10:14 Psychiatric Subjective Eval Consent Pt consented to telemedicine: No Subjective Evaluation Patient location: inpatient History of present illness Patient is a 57-year-old male being admitted to the hospital with complaints of fatigue, and poor appetite. [id number] evaluation, patient is tearful, reports constant panic attacks worried about his job and his family. Patient reports depression but denies suicidal ideation and contracted for safety. Explained risk and benefits of antidepressant and he verbalized understanding. Hospitalization: other Allergies: Coded Allergies: No Known Allergies (Verified Allergy, Unknown, 10/10/18) Substance Abuse Substance abuse history: No Prior substance abuse treatmen: No Social History Marital status: other DPA/Conservatorship: No Psychiatric Objective Eval Physical Examination: Appetite: Decreased Energy: Decreased Interest: Decreased Mental Status Examination: Appearance: Groomed Psychomotor Activity: Normal Behavior: Cooperative Speech: Soft AFFECT: Flat Mood: Depressed, Anxious Though Process: Linear Orientation: x4 Cognition: Alert Insight: Intact Judgement: Intact Attention Span: Intact Laboratory Results Laboratory Tests Test 10/11/18 11:05 10/11/18 13:56 10/11/18 17:50 10/11/18 21:18 Potassium Level 3.3 mmol/L Bedside Glucose 153 mg/dL 177 mg/dL 134 mg/dL Test 10/12/18 04:23 10/12/18 04:25 10/12/18 08:05 10/12/18 08:11 Procalcitonin 0.66 ng/mL Potassium Level 3.5 mmol/L 3.7 mmol/L Bedside Glucose 107 mg/dL White Blood Count 6.7 10^3/ul Red Blood Count 3.35 10^6/ul Hemoglobin 10.8 g/dl Hematocrit 31.9 % Mean Corpuscular 95.2 fl Volume Mean Corpuscular 32.2 pg Hemoglobin Mean Corpuscular 33.9 g/dl Hemoglobin Concent Red Cell 13.4 % Distribution Width Platelet Count 242 10^3/UL Mean Platelet Volume 9.6 fl Immature 0.900 % Granulocytes % Neutrophils % 60.5 % Lymphocytes % 25.2 % Monocytes % 9.1 % Eosinophils % 3.9 % Basophils % 0.4 % Nucleated Red Blood 0.0 /100WBC Cells % Immature 0.060 10^3/ul Granulocytes # Neutrophils # 4.1 10^3/ul Lymphocytes # 1.7 10^3/ul Monocytes # 0.6 10^3/ul Eosinophils # 0.3 10^3/ul Basophils # 0.0 10^3/ul Nucleated Red Blood 0.0 10^3/ul Cells # Sodium Level 142 mmol/L Chloride Level 117 mmol/L Carbon Dioxide Level 19 mmol/L Anion Gap 6 Blood Urea Nitrogen 19 mg/dl Creatinine 1.61 mg/dl Est Glomerular 45 mL/min Filtrat Rate mL/min Glucose Level 107 mg/dl Calcium Level 7.1 mg/dl Phosphorus Level 2.0 mg/dl Magnesium Level 1.8 mg/dl Total Bilirubin 0.9 mg/dl Direct Bilirubin 0.00 mg/dl Indirect Bilirubin 0.9 mg/dl Aspartate Amino 112 IU/L Transf (AST/SGOT) Alanine 135 IU/L Aminotransferase (AL T/SGPT) Alkaline Phosphatase 65 IU/L Total Protein 5.3 g/dl Albumin 2.5 g/dl Globulin 2.80 g/dl Albumin/Globulin 0.89 Ratio Lipase 392 U/L Test 10/12/18 12:26 10/12/18 17:40 10/13/18 04:24 10/13/18 08:44 Bedside Glucose 117 mg/dL 110 mg/dL 146 mg/dL White Blood Count 21.2 10^3/ul Red Blood Count 3.12 10^6/ul Hemoglobin 10.2 g/dl Hematocrit 30.4 % Mean Corpuscular 97.4 fl Volume Mean Corpuscular 32.7 pg Hemoglobin Mean Corpuscular 33.6 g/dl Hemoglobin Concent Red Cell 13.2 % Distribution Width Platelet Count 215 10^3/UL Mean Platelet Volume 10.1 fl Immature 1.100 % Granulocytes % Neutrophils % 83.6 % Lymphocytes % 9.5 % Monocytes % 5.4 % Eosinophils % 0.2 % Basophils % 0.2 % Nucleated Red Blood 0.0 /100WBC Cells % Immature 0.240 10^3/ul Granulocytes # Neutrophils # 17.7 10^3/ul Lymphocytes # 2.0 10^3/ul Monocytes # 1.1 10^3/ul Eosinophils # 0.0 10^3/ul Basophils # 0.0 10^3/ul Nucleated Red Blood 0.0 10^3/ul Cells # Sodium Level 139 mmol/L Potassium Level 4.4 mmol/L Chloride Level 113 mmol/L Carbon Dioxide Level 19 mmol/L Anion Gap 7 Blood Urea Nitrogen 15 mg/dl Creatinine 1.72 mg/dl Est Glomerular 41 mL/min Filtrat Rate mL/min Glucose Level 202 mg/dl Calcium Level 7.1 mg/dl Phosphorus Level 1.3 mg/dl Magnesium Level 1.5 mg/dl Assessment and Plan Assessment/Diagnosis Diagnosis 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
[2018-10-13] MEDS: ESCITALOPRAM 10 MG TAB PO SCH (11:42)
--- NOTE | 2018-10-13 14:53 | PN ---
Date/Time of Note Date/Time of Note DATE: 10/13/18 TIME: 14:46 Assessment/Plan VTE Prophylaxis Risk score (from [facility])>0 risk: 3 SCD applied (from [facility]): Yes Pharmacological prophylaxis: other Pharm contraindication: other Lines/Catheters IV Catheter Type (from [facility]): Peripheral IV Urinary Cath still in place: No Assessment/Plan Hospital Course 1. Diarrhea. He is having less abdominal pain and less diarrhea. He is not eating much. His phosphorus ,magnesium , calcium and albumin are low. I am going to replace these electrolytes. 2. Pancreatitis with elevated lipase level . Pancreatic insufficiency could be causing his diarrhea 3.. Elevated liver enzymes, High iron, iron saturation, and ferritin. Could be consistent with hemochromatosis. 4. Anemia, his hemoglobin is drifting down , he has not had any obvious GI bleeding. 5. Acute renal failure. His urine sodium is low and this is consistent with dehydration/volume depletion. He is getting IV fluids to replete him. 6. Leukocytosis. His temperature was slightly elevated last evening. Result Diagram: 10/13/18 0424 10/13/18 0424 Results 24hrs Laboratory Tests Test 10/12/18 17:40 10/13/18 04:24 10/13/18 08:44 10/13/18 12:38 Bedside Glucose 110 146 170 White Blood Count 21.2 #H Red Blood Count 3.12 L Hemoglobin 10.2 L Hematocrit 30.4 L Mean Corpuscular Volume 97.4 Mean Corpuscular 32.7 Hemoglobin Mean Corpuscular 33.6 Hemoglobin Concent Red Cell Distribution 13.2 Width Platelet Count 215 Mean Platelet Volume 10.1 Immature Granulocytes % 1.100 H Neutrophils % 83.6 H Lymphocytes % 9.5 L Monocytes % 5.4 Eosinophils % 0.2 Basophils % 0.2 Nucleated Red Blood 0.0 Cells % Immature Granulocytes # 0.240 H Neutrophils # 17.7 H Lymphocytes # 2.0 Monocytes # 1.1 H Eosinophils # 0.0 Basophils # 0.0 Nucleated Red Blood 0.0 Cells # Sodium Level 139 Potassium Level 4.4 Chloride Level 113 H Carbon Dioxide Level 19 L Anion Gap 7 Blood Urea Nitrogen 15 Creatinine 1.72 H Est Glomerular Filtrat 41 L Rate mL/min Glucose Level 202 Calcium Level 7.1 L Phosphorus Level 1.3 L Magnesium Level 1.5 L Subjective 24 Hr Interval Summary Free Text/Dictation Patient is awake and alert. He says that he still has some abdominal pain. He still has diarrhea but it is much less since he has come into the hospital. No vomiting. He is trying to eat better. Constitutional: poor po Respiratory: no complaints Cardiovascular: no complaints Gastrointestinal: pain, diarrhea Genitourinary: no complaints Musculoskeletal: no complaints Exam/Review of Systems Exam Vitals Vital Signs Date Temp Pulse Resp B/P (MAP) Pulse Ox O2 O2 Flow FiO2 Time Delivery Rate 10/13/18 98.0 70 18 102/51 99 Room Air 07:29 (68) 10/12/18 2.0 14:54 Intake and Output 10/12/18 10/12/18 10/13/18 1515:00 23:00 07:00 IntakeIntake Total 100 ml 1705 ml 1770 ml BalanceBalance 100 ml 1705 ml 1770 ml Constitutional: alert, oriented, frail Respiratory: clear to auscultation, normal air movement Cardiovascular: regular rate and rhythm Gastrointestinal: soft, bowel sounds, tender Musculoskeletal: nl extremities to inspection Results Results 24hrs Laboratory Tests Test 10/12/18 17:40 10/13/18 04:24 10/13/18 08:44 10/13/18 12:38 Bedside Glucose 110 146 170 White Blood Count 21.2 #H Red Blood Count 3.12 L Hemoglobin 10.2 L Hematocrit 30.4 L Mean Corpuscular Volume 97.4 Mean Corpuscular 32.7 Hemoglobin Mean Corpuscular 33.6 Hemoglobin Concent Red Cell Distribution 13.2 Width Platelet Count 215 Mean Platelet Volume 10.1 Immature Granulocytes % 1.100 H Neutrophils % 83.6 H Lymphocytes % 9.5 L Monocytes % 5.4 Eosinophils % 0.2 Basophils % 0.2 Nucleated Red Blood 0.0 Cells % Immature Granulocytes # 0.240 H Neutrophils # 17.7 H Lymphocytes # 2.0 Monocytes # 1.1 H Eosinophils # 0.0 Basophils # 0.0 Nucleated Red Blood 0.0 Cells # Sodium Level 139 Potassium Level 4.4 Chloride Level 113 H Carbon Dioxide Level 19 L Anion Gap 7 Blood Urea Nitrogen 15 Creatinine 1.72 H Est Glomerular Filtrat 41 L Rate mL/min Glucose Level 202 Calcium Level 7.1 L Phosphorus Level 1.3 L Magnesium Level 1.5 L Medications Medication Current Medications IV Flush (NS 3 ml) 3 ml PER PROTOCOL IV Last administered on 10/12/18 22:25; Admin Dose 3 ML; Start 10/10/18 at 13:00 Ondansetron HCl (Zofran Inj) 4 mg Q6H PRN IV NAUSEA/VOMITING Last administered on 10/12/18 19:00; Admin Dose 4 MG; Start 10/10/18 at 13:00 Alprazolam (Xanax) 0.5 mg Q8H PRN PO ANXIETY Last administered on 10/13/18 10:55; Admin Dose 0.5 MG; Start 10/10/18 at 13:00 Metoprolol Succinate (Toprol Xl) 50 mg BID PO Last administered on 10/12/18 22:25; Admin Dose 50 MG; Start 10/10/18 at 13:30 Tamsulosin HCl (Flomax) 0.4 mg HS PO Last administered on 10/12/18 22:25; Admin Dose 0.4 MG; Start 10/10/18 at 21:00 Diagnostic Test (Pha) (Accu-Chek) 1 ea 02 XX ; Start 10/11/18 at 02:00 Insulin Aspart (Novolog Insulin Pen) NOVOLOG *MILD* ALGORI... AC MEALS SC Last administered on 10/13/18 12:56; Admin Dose 2 UNIT; Start 10/10/18 at 17:25 Pantoprazole (Protonix Tab) 40 mg DAILY@06 PO Last administered on 10/13/18 04:36; Admin Dose 40 MG; Start 10/11/18 at 06:00 Metoclopramide HCl (Reglan) 10 mg Q6H PRN PO vomiting; Start 10/10/18 at 18:30 Miscellaneous Information 1 ea NOTE XX ; Start 10/11/18 at 12:00 Glucose (Glutose) 15 gm Q15M PRN PO DECREASED GLUCOSE; Start 10/11/18 at 12:00 Glucose (Glutose) 22.5 gm Q15M PRN PO DECREASED GLUCOSE; Start 10/11/18 at 12:00 Dextrose (D50w Syringe) 25 ml Q15M PRN IV DECREASED GLUCOSE; Start 10/11/18 at 12:00 Dextrose (D50w Syringe) 50 ml Q15M PRN IV DECREASED GLUCOSE; Start 10/11/18 at 12:00 Glucagon (Glucagen) 1 mg Q15M PRN IM DECREASED GLUCOSE; Start 10/11/18 at 12:00 Glucose (Glutose) 15 gm Q15M PRN BUCCAL DECREASED GLUCOSE; Start 10/11/18 at 12:00 Loperamide HCl (Imodium Cap) 2 mg Q6H PRN PO DIARRHEA Last administered on 10/11/18at 14:19; Admin Dose 2 MG; Start 10/11/18 at 14:30 Acetaminophen (Tylenol Tab) 500 mg Q6H PRN PO MILD PAIN(1-3)OR ELEVATED TEMP; Start 10/12/18 at 18:00 Escitalopram Oxalate (Lexapro) 5 mg DAILY PO Last administered on 10/13/18at 11:42; Admin Dose 5 MG; Start 10/13/18 at 10:30 Magnesium Sulfate 50 ml @ 25 mls/hr ONCE ONCE IVPB ; Start 10/13/18 at 15:00; Stop 10/13/18 at 16:59 Potassium Chloride 10 meq/ Potassium Phosphate 10 meq/ Sodium Chloride 1,007.2727 ml @ 100 mls/hr Q10H5M IV ; Start 10/13/18 at 16:00 Zolpidem Tartrate (Ambien) 10 mg HS PRN PO INSOMNIA; Start 10/13/18 at 15:00 Calcium Carbonate (Oyster Shell Calcium) 1.25 gm BID PO ; Start 10/13/18 at 21:00; Status UNNEYDA MIRAMONTES MD Oct 13, 2018 14:53
[2018-10-13] MEDS ORDERED: MAGNESIUM SULFATE 2 GM/50 ML 50 ML IVPB ONE (15:00)
[2018-10-13 15:03] VITALS: BP 107/64; PULSE 66; RESP 18
[2018-10-13] MEDS: POTASSIUM CHLORIDE IV SCH (16:28)
[2018-10-13] MEDS: POTASSIUM PHOSPHATE IV SCH (16:28)
[2018-10-13] MEDS: SOD CHLORIDE 0.45% IV SCH (16:28)
[2018-10-13 19:25] VITALS: BP 129/72; PULSE 70; RESP 18
[2018-10-13] MEDS: TAMSULOSIN (SR) 0.4 MG CAP PO SCH (19:35)
[2018-10-13] MEDS: CALCIUM CARBONATE 1.25 GM TAB PO SCH (20:30)
[2018-10-13] MEDS: ZOLPIDEM 5 MG TAB PO PRN (21:54)
[2018-10-14] MEDS: ACETAMINOPHEN 500 MG TAB PO PRN (00:37)
[2018-10-14] MEDS: ACCU-CHEK XX SCH ×2 (01:45→21:31)
[2018-10-14] MEDS: SOD CHLORIDE 0.45% IV SCH ×3 (02:05→14:51)
[2018-10-14] MEDS: POTASSIUM PHOSPHATE IV SCH ×3 (02:05→14:51)
[2018-10-14] MEDS: POTASSIUM CHLORIDE IV SCH ×3 (02:05→14:51)
[2018-10-14 02:45] VITALS: BP 117/64; PULSE 58; RESP 18
[2018-10-14] MEDS: PANTOPRAZOLE (EC) 40 MG TAB PO SCH (04:44)
[2018-10-14 07:35] VITALS: BP 120/74; PULSE 57; RESP 18
[2018-10-14] MEDS: INSULIN ASPART [NOVOLOG] 3 ML PEN SC SCH ×3 (08:49→17:28)
[2018-10-14] MEDS: ESCITALOPRAM 10 MG TAB PO SCH (08:51)
[2018-10-14] MEDS: CALCIUM CARBONATE 1.25 GM TAB PO SCH ×2 (08:51→21:06)
[2018-10-14] MEDS: METOPROLOL (XL) 50 MG TAB PO SCH ×2 (08:52→21:05)
--- NOTE | 2018-10-14 12:33 | PN ---
Date/Time of Note Date/Time of Note DATE: 10/14/18 TIME: 12:28 Assessment/Plan VTE Prophylaxis Risk [place] [facility] [place] risk: 3 SCD applied (from [facility] [place] Yes SCD contraindicated: other Pharmacological prophylaxis: NA/contraindicated Pharm contraindication: other Lines/Catheters IV Catheter Type (from [facility]): Peripheral IV Urinary Cath still in place: No Assessment/Plan Hospital Course 1. Diarrhea. He is having less abdominal pain and less diarrhea. He is not eating much. 2. Pancreatitis with elevated lipase level . Pancreatic insufficiency could be causing his diarrhea 3.. Elevated liver enzymes, High iron, iron saturation, and ferritin. Could be consistent with hemochromatosis. 4. Anemia, his hemoglobin is drifting down , he has not had any obvious GI bleeding. 5. Acute renal failure. His renal function continues to improve. 6. Leukocytosis. His white blood count is less today. He has been afebrile. 7. Hypomagnesemia, hypophosphatemia, hypocalcemia. They are correcting with replacement. Result Diagram: 10/14/18 0418 10/14/18 0418 Results 24hrs Laboratory Tests Test 10/13/18 12:38 10/13/18 17:49 10/14/18 01:45 10/14/18 04:18 Bedside Glucose 170 155 113 White Blood Count 14.0 #H Red Blood Count 2.85 L Hemoglobin 9.1 L Hematocrit 27.0 L Mean Corpuscular Volume 94.7 Mean Corpuscular 31.9 Hemoglobin Mean Corpuscular 33.7 Hemoglobin Concent Red Cell Distribution 13.2 Width Platelet Count 213 Mean Platelet Volume 10.2 Immature Granulocytes % 0.700 H Neutrophils % 71.8 Lymphocytes % 18.0 Monocytes % 6.2 Eosinophils % 2.9 Basophils % 0.4 Nucleated Red Blood 0.0 Cells % Immature Granulocytes # 0.100 H Neutrophils # 10.0 H Lymphocytes # 2.5 Monocytes # 0.9 Eosinophils # 0.4 Basophils # 0.1 Nucleated Red Blood 0.0 Cells # Sodium Level 140 Potassium Level 3.8 Chloride Level 114 H Carbon Dioxide Level 22 Anion Gap 4 L Blood Urea Nitrogen 10 Creatinine 1.59 H Est Glomerular Filtrat 45 L Rate mL/min Glucose Level 102 # Calcium Level 7.5 L Phosphorus Level 2.4 #L Magnesium Level 1.9 Total Bilirubin 0.5 Direct Bilirubin 0.00 Indirect Bilirubin 0.5 Aspartate Amino 61 H Transf (AST/SGOT) Alanine 84 H Aminotransferase (ALT/SG PT) Alkaline Phosphatase 61 Total Protein 5.0 L Albumin 2.4 L Globulin 2.60 Albumin/Globulin Ratio 0.92 Amylase Level 55 Lipase 391 H Test 10/14/18 08:48 Bedside Glucose 108 Subjective 24 Hr Interval Summary Free Text/Dictation This patient is lying in bed sleeping. He arouses easily to verbal stimuli. He says that he is overall feeling better. He has less diarrhea, less abdominal pain, and he is eating more. Constitutional: improved Respiratory: no complaints Cardiovascular: no complaints Gastrointestinal: diarrhea Genitourinary: no complaints Musculoskeletal: no complaints Neurologic: no complaints Exam/Review of Systems Exam Vitals Vital Signs Date Temp Pulse Resp B/P (MAP) Pulse Ox O2 O2 Flow FiO2 Time Delivery Rate 10/14/18 98.2 57 18 120/74 94 07:35 (89) 10/13/18 Room Air 15:03 10/12/18 2.0 14:54 Intake and Output 10/13/18 10/13/18 10/14/18 1515:00 23:00 07:00 IntakeIntake Total 500 ml 1465 ml 1300 ml OutputOutput Total 500 ml BalanceBalance 500 ml 1465 ml 800 ml Constitutional: alert, oriented, frail Neck: supple Respiratory: clear to auscultation, normal air movement Cardiovascular: regular rate and rhythm Gastrointestinal: soft, non-tender Musculoskeletal: nl extremities to inspection Results Results 24hrs Laboratory Tests Test 10/13/18 12:38 10/13/18 17:49 10/14/18 01:45 10/14/18 04:18 Bedside Glucose 170 155 113 White Blood Count 14.0 #H Red Blood Count 2.85 L Hemoglobin 9.1 L Hematocrit 27.0 L Mean Corpuscular Volume 94.7 Mean Corpuscular 31.9 Hemoglobin Mean Corpuscular 33.7 Hemoglobin Concent Red Cell Distribution 13.2 Width Platelet Count 213 Mean Platelet Volume 10.2 Immature Granulocytes % 0.700 H Neutrophils % 71.8 Lymphocytes % 18.0 Monocytes % 6.2 Eosinophils % 2.9 Basophils % 0.4 Nucleated Red Blood 0.0 Cells % Immature Granulocytes # 0.100 H Neutrophils # 10.0 H Lymphocytes # 2.5 Monocytes # 0.9 Eosinophils # 0.4 Basophils # 0.1 Nucleated Red Blood 0.0 Cells # Sodium Level 140 Potassium Level 3.8 Chloride Level 114 H Carbon Dioxide Level 22 Anion Gap 4 L Blood Urea Nitrogen 10 Creatinine 1.59 H Est Glomerular Filtrat 45 L Rate mL/min Glucose Level 102 # Calcium Level 7.5 L Phosphorus Level 2.4 #L Magnesium Level 1.9 Total Bilirubin 0.5 Direct Bilirubin 0.00 Indirect Bilirubin 0.5 Aspartate Amino 61 H Transf (AST/SGOT) Alanine 84 H Aminotransferase (ALT/SG PT) Alkaline Phosphatase 61 Total Protein 5.0 L Albumin 2.4 L Globulin 2.60 Albumin/Globulin Ratio 0.92 Amylase Level 55 Lipase 391 H Test 10/14/18 08:48 Bedside Glucose 108 Medications Medication Current Medications IV Flush (NS 3 ml) 3 ml PER PROTOCOL IV Last administered on 10/12/18 22:25; Admin Dose 3 ML; Start 10/10/18 at 13:00 Ondansetron HCl (Zofran Inj) 4 mg Q6H PRN IV NAUSEA/VOMITING Last administered on 10/12/18 19:00; Admin Dose 4 MG; Start 10/10/18 at 13:00 Alprazolam (Xanax) 0.5 mg Q8H PRN PO ANXIETY Last administered on 10/13/18 20:31; Admin Dose 0.5 MG; Start 10/10/18 at 13:00 Metoprolol Succinate (Toprol Xl) 50 mg BID PO Last administered on 10/13/18 19:36; Admin Dose 50 MG; Start 10/10/18 at 13:30 Tamsulosin HCl (Flomax) 0.4 mg HS PO Last administered on 10/13/18 19:35; Admin Dose 0.4 MG; Start 10/10/18 at 21:00 Diagnostic Test (Pha) (Accu-Chek) 1 ea 02 XX ; Start 10/11/18 at 02:00 Insulin Aspart (Novolog Insulin Pen) NOVOLOG *MILD* ALGORI... AC MEALS SC Last administered on 10/13/18 18:03; Admin Dose 1 UNIT; Start 10/10/18 at 17:25 Pantoprazole (Protonix Tab) 40 mg DAILY@06 PO Last administered on 10/14/18 04:44; Admin Dose 40 MG; Start 10/11/18 at 06:00 Metoclopramide HCl (Reglan) 10 mg Q6H PRN PO vomiting; Start 10/10/18 at 18:30 Miscellaneous Information 1 ea NOTE XX ; Start 10/11/18 at 12:00 Glucose (Glutose) 15 gm Q15M PRN PO DECREASED GLUCOSE; Start 10/11/18 at 12:00 Glucose (Glutose) 22.5 gm Q15M PRN PO DECREASED GLUCOSE; Start 10/11/18 at 12:00 Dextrose (D50w Syringe) 25 ml Q15M PRN IV DECREASED GLUCOSE; Start 10/11/18 at 12:00 Dextrose (D50w Syringe) 50 ml Q15M PRN IV DECREASED GLUCOSE; Start 10/11/18 at 1 2:00 Glucagon (Glucagen) 1 mg Q15M PRN IM DECREASED GLUCOSE; Start 10/11/18 at 12:00 Glucose (Glutose) 15 gm Q15M PRN BUCCAL DECREASED GLUCOSE; Start 10/11/18 at 12:00 Loperamide HCl (Imodium Cap) 2 mg Q6H PRN PO DIARRHEA Last administered on 10/11/18at 14:19; Admin Dose 2 MG; Start 10/11/18 at 14:30 Acetaminophen (Tylenol Tab) 500 mg Q6H PRN PO MILD PAIN(1-3)OR ELEVATED TEMP Last administered on 10/14/18at 00:37; Admin Dose 500 MG; Start 10/12/18 at 18:00 Escitalopram Oxalate (Lexapro) 5 mg DAILY PO Last administered on 10/14/18at 08:51; Admin Dose 5 MG; Start 10/13/18 at 10:30 Potassium Chloride 10 meq/ Potassium Phosphate 10 meq/ Sodium Chloride 1,007.2727 ml @ 100 mls/hr Q10H5M IV Last administered on 10/14/18at 04:38; Admin Dose 100 MLS/HR; Start 10/13/18 at 16:00 Zolpidem Tartrate (Ambien) 10 mg HS PRN PO INSOMNIA Last administered on 10/13/18at 21:54; Admin Dose 10 MG; Start 10/13/18 at 15:00 Calcium Carbonate (Oyster Shell Calcium) 1.25 gm BID PO Last administered on 10/14/18at 08:51; Admin Dose 1.25 GM; Start 10/13/18 at 21:00 NEYDA SEO MD Oct 14, 2018 12:33
[2018-10-14] MEDS: ALPRAZOLAM 0.5 MG TAB PO PRN ×2 (12:43→21:06)
[2018-10-14 15:23] VITALS: BP 122/70; PULSE 60; RESP 18
[2018-10-14 19:30] VITALS: BP 147/70; PULSE 60; RESP 18
[2018-10-14] MEDS: TAMSULOSIN (SR) 0.4 MG CAP PO SCH (21:05)
[2018-10-14] MEDS: ZOLPIDEM 5 MG TAB PO PRN (22:03)
[2018-10-15] MEDS: ONDANSETRON 4 MG INJ IV PRN ×2 (00:23→00:24)
[2018-10-15] MEDS: SOD CHLORIDE 0.45% IV SCH (01:53)
[2018-10-15] MEDS: POTASSIUM CHLORIDE IV SCH (01:53)
[2018-10-15] MEDS: POTASSIUM PHOSPHATE IV SCH (01:53)
[2018-10-15 02:41] VITALS: BP 154/75; PULSE 56; RESP 18
[2018-10-15] MEDS: PANTOPRAZOLE (EC) 40 MG TAB PO SCH ×3 (05:05→20:21)
[2018-10-15] MEDS: ALPRAZOLAM 0.5 MG TAB PO PRN ×2 (05:09→20:28)
[2018-10-15 07:34] VITALS: BP 138/71; PULSE 66; RESP 18
--- NOTE | 2018-10-15 08:21 | CONS ---
Assessment/Plan Assessment/Plan Hospital Course (Demo Recall) 1) pancreatitis with liver inflammation CT and MRI only show fatty liver pt states he is only a social drinker and no alcohol for 10 days his CBC dif does not show an increase in his lymphocytes or monocytes which make a viral etiology less likely no classic symptoms for a viral disease other than his sore throat 3 weeks ago but his symptoms pre date that his ESR is WNL doubt he has CMV or EBV but CMV can cause pancreatitis will check CMV and EBV serology and get CMV pcr will also check RPR, parvo B19 upper and lower endoscopy is planned liver enzymes and pancreatitis enzymes are improving 10/15 - further improvement with LFT's lipase to be added to a.m. labs RPR was neg, viral serologies are pending continue off antibiotics, WBC continues to improve without antibiotics and likely related to pancreatitis elevated procalcitonin is also in response to pancreatitis will follow up on viral etiologies and if positive will inform Dr. Regalado 2) ARF urine does not suggest infection this is improving with hydration 10/15 - continue slow improvement Consultation Date/Type/Reason Admit Date/Time Oct 10, 2018 at 11:07 Initial Consult Date 10/12/18 Type of Consult ID Date/Time of Note DATE: 10/15/18 TIME: 08:17 24 HR Interval Summary Free Text/Dictation no more vomiting eating about 20% abd pain is better Exam/Review of Systems Exam Vitals Vital Signs Date Temp Pulse Resp B/P (MAP) Pulse Ox O2 O2 Flow FiO2 Time Delivery Rate 10/15/18 98.0 66 18 138/71 99 Room Air 07:34 (93) 10/12/18 2.0 14:54 Intake and Output 10/14/18 10/14/18 10/15/18 1515:00 23:00 07:00 IntakeIntake Total 1247.2727 ml 680 ml 1700 ml BalanceBalance 1247.2727 ml 680 ml 1700 ml Results Result Diagram: 10/15/18 0436 10/15/18 0436 Results 24hrs Laboratory Tests Test 10/14/18 08:48 10/14/18 12:38 10/14/18 17:26 10/14/18 21:09 Bedside Glucose 108 163 152 114 Test 10/15/18 04:35 10/15/18 04:36 Iron Level 37 Total Iron Binding 186 L Capacity Percent Iron Saturation 20 L White Blood Count 12.5 H Red Blood Count 2.83 L Hemoglobin 9.0 L Hematocrit 27.0 L Mean Corpuscular Volume 95.4 Mean Corpuscular 31.8 Hemoglobin Mean Corpuscular 33.3 Hemoglobin Concent Red Cell Distribution 13.1 Width Platelet Count 215 Mean Platelet Volume 10.2 Immature Granulocytes % 0.900 H Neutrophils % 68.1 Lymphocytes % 20.6 Monocytes % 6.6 Eosinophils % 3.4 Basophils % 0.4 Nucleated Red Blood 0.0 Cells % Immature Granulocytes # 0.110 H Neutrophils # 8.5 H Lymphocytes # 2.6 Monocytes # 0.8 Eosinophils # 0.4 Basophils # 0.1 Nucleated Red Blood 0.0 Cells # Sodium Level 139 Potassium Level 4.0 Chloride Level 110 Carbon Dioxide Level 24 Anion Gap 5 Blood Urea Nitrogen 10 Creatinine 1.57 H Est Glomerular Filtrat 46 L Rate mL/min Glucose Level 103 Calcium Level 8.3 L Phosphorus Level 3.2 Magnesium Level 1.5 L Total Bilirubin 0.4 Direct Bilirubin 0.00 Indirect Bilirubin 0.4 Aspartate Amino 52 H Transf (AST/SGOT) Alanine 73 H Aminotransferase (ALT/SG PT) Alkaline Phosphatase 68 Total Protein 5.5 L Albumin 2.7 L Globulin 2.80 Albumin/Globulin Ratio 0.96 Medications Medication Current Medications IV Flush (NS 3 ml) 3 ml PER PROTOCOL IV Last administered on 10/12/18 22:25; Admin Dose 3 ML; Start 10/10/18 at 13:00 Ondansetron HCl (Zofran Inj) 4 mg Q6H PRN IV NAUSEA/VOMITING Last administered on 10/15/18 00:24; Admin Dose 4 MG; Start 10/10/18 at 13:00 Alprazolam (Xanax) 0.5 mg Q8H PRN PO ANXIETY Last administered on 10/15/18 05:09; Admin Dose 0.5 MG; Start 10/10/18 at 13:00 Metoprolol Succinate (Toprol Xl) 50 mg BID PO Last administered on 10/14/18 21:05; Admin Dose 50 MG; Start 10/10/18 at 13:30 Tamsulosin HCl (Flomax) 0.4 mg HS PO Last administered on 10/14/18 21:05; Admin Dose 0.4 MG; Start 10/10/18 at 21:00 Diagnostic Test (Pha) (Accu-Chek) 1 ea 02 XX ; Start 10/11/18 at 02:00 Insulin Aspart (Novolog Insulin Pen) NOVOLOG *MILD* ALGORI... AC MEALS SC Last administered on 10/14/18at 17:28; Admin Dose 1 UNIT; Start 10/10/18 at 17:25 Pantoprazole (Protonix Tab) 40 mg DAILY@06 PO Last administered on 10/15/18at 05:05; Admin Dose 40 MG; Start 10/11/18 at 06:00 Metoclopramide HCl (Reglan) 10 mg Q6H PRN PO vomiting; Start 10/10/18 at 18:30 Miscellaneous Information 1 ea NOTE XX ; Start 10/11/18 at 12:00 Glucose (Glutose) 15 gm Q15M PRN PO DECREASED GLUCOSE; Start 10/11/18 at 12:00 Glucose (Glutose) 22.5 gm Q15M PRN PO DECREASED GLUCOSE; Start 10/11/18 at 12:00 Dextrose (D50w Syringe) 25 ml Q15M PRN IV DECREASED GLUCOSE; Start 10/11/18 at 12:00 Dextrose (D50w Syringe) 50 ml Q15M PRN IV DECREASED GLUCOSE; Start 10/11/18 at 12:00 Glucagon (Glucagen) 1 mg Q15M PRN IM DECREASED GLUCOSE; Start 10/11/18 at 12:00 Glucose (Glutose) 15 gm Q15M PRN BUCCAL DECREASED GLUCOSE; Start 10/11/18 at 12:00 Loperamide HCl (Imodium Cap) 2 mg Q6H PRN PO DIARRHEA Last administered on 10/11at 14:19; Admin Dose 2 MG; Start 10/11/18 at 14:30 Acetaminophen (Tylenol Tab) 500 mg Q6H PRN PO MILD PAIN(1-3)OR ELEVATED TEMP Last administered on 10/14/18at 00:37; Admin Dose 500 MG; Start 10/12/18 at 18:00 Escitalopram Oxalate (Lexapro) 5 mg DAILY PO Last administered on 10/14/18at 08:51; Admin Dose 5 MG; Start 10/13/18 at 10:30 Potassium Chloride 10 meq/ Potassium Phosphate 10 meq/ Sodium Chloride 1,007.2727 ml @ 100 mls/hr Q10H5M IV Last administered on 10/15/18at 01:53; Admin Dose 100 MLS/HR; Start 10/13/18 at 16:00 Zolpidem Tartrate (Ambien) 10 mg HS PRN PO INSOMNIA Last administered on at 22:03; Admin Dose 10 MG; Start 10/13/18 at 15:00 Magnesium Sulfate 3 gm/Dextrose 106 ml @ 35.333 mls/ hr ONCE ONCE IVPB ; Start 10/15/18 at 09:00; Stop 10/15/18 at 11:59 LELO BEST MD Oct 15, 2018 08:21
--- NOTE | 2018-10-15 08:32 | PN ---
Date/Time of Note Date/Time of Note DATE: 10/15/18 TIME: 08:22 Assessment/Plan VTE Prophylaxis Risk score (from [facility])>0 risk: 1 SCD applied (from [facility]): Yes Pharmacological prophylaxis: LMWH Lines/Catheters IV [facility] Type (from [facility] Peripheral IV Urinary Cath still in place: No Assessment/Plan Assessment/Plan 1. Liver tests are improving, sec to acute common duct stones and ?? pancr eatitis now improving (repeat lipase ordered today) 2. Renal function has improved 3. Cont'd early satiety and bloating, await results of path (stomach and colon) 4. DM, control is acceptable 5. Transient inc in wbc ? cause (no blood culture were obtained) 6. Need to get him mobile and eval for transfer ARU 7. IV stopped Result Diagram: 10/15/186 10/15/18 0436 Results 24hrs Laboratory Tests Test 10/14/18 08:48 10/14/18 12:38 10/14/18 17:26 10/14/18 21:09 Bedside Glucose 108 163 152 114 Test 10/15/18 04:35 10/15/18 04:36 Iron Level 37 Total Iron Binding 186 L Capacity Percent Iron Saturation 20 L White Blood Count 12.5 H Red Blood Count 2.83 L Hemoglobin 9.0 L Hematocrit 27.0 L Mean Corpuscular Volume 95.4 Mean Corpuscular 31.8 Hemoglobin Mean Corpuscular 33.3 Hemoglobin Concent Red Cell Distribution 13.1 Width Platelet Count 215 Mean Platelet Volume 10.2 Immature Granulocytes % 0.900 H Neutrophils % 68.1 Lymphocytes % 20.6 Monocytes % 6.6 Eosinophils % 3.4 Basophils % 0.4 Nucleated Red Blood 0.0 Cells % Immature Granulocytes # 0.110 H Neutrophils # 8.5 H Lymphocytes # 2.6 Monocytes # 0.8 Eosinophils # 0.4 Basophils # 0.1 Nucleated Red Blood 0.0 Cells # Sodium Level 139 Potassium Level 4.0 Chloride Level 110 Carbon Dioxide Level 24 Anion Gap 5 Blood Urea Nitrogen 10 Creatinine 1.57 H Est Glomerular Filtrat 46 L Rate mL/min Glucose Level 103 Calcium Level 8.3 L Phosphorus Level 3.2 Magnesium Level 1.5 L Total Bilirubin 0.4 Direct Bilirubin 0.00 Indirect Bilirubin 0.4 Aspartate Amino 52 H Transf (AST/SGOT) Alanine 73 H Aminotransferase (ALT/SG PT) Alkaline Phosphatase 68 Total Protein 5.5 L Albumin 2.7 L Globulin 2.80 Albumin/Globulin Ratio 0.96 Subjective 24 Hr Interval Summary Respiratory: cough (mild and not productive); No shortness of breath Cardiovascular: No chest pain, No lightheadedness Gastrointestinal: other (early satiety and sl bloating wihitout n, v and no rec diarrhea) Exam/Review of Systems Exam Vitals Vital Signs Date Temp Pulse Resp B/P (MAP) Pulse Ox O2 O2 Flow FiO2 Time Delivery Rate 10/15/18 98.0 66 18 138/71 99 Room Air 07:34 (93) 10/12/18 2.0 14:54 Intake and Output 10/14/18 10/14/18 10/15/18 1515:00 23:00 07:00 IntakeIntake Total 1247.2727 ml 680 ml 1700 ml BalanceBalance 1247.2727 ml 680 ml 1700 ml Neck: No jvd Respiratory: clear to auscultation Cardiovascular: regular rate and rhythm Gastrointestinal: soft, other (sl distened without tend) Extremities: edema Results Results 24hrs Laboratory Tests Test 10/14/18 08:48 10/14/18 12:38 10/14/18 17:26 10/14/18 21:09 Bedside Glucose 108 163 152 114 Test 10/15/18 04:35 10/15/18 04:36 Iron Level 37 Total Iron Binding 186 L Capacity Percent Iron Saturation 20 L White Blood Count 12.5 H Red Blood Count 2.83 L Hemoglobin 9.0 L Hematocrit 27.0 L Mean Corpuscular Volume 95.4 Mean Corpuscular 31.8 Hemoglobin Mean Corpuscular 33.3 Hemoglobin Concent Red Cell Distribution 13.1 Width Platelet Count 215 Mean Platelet Volume 10.2 Immature Granulocytes % 0.900 H Neutrophils % 68.1 Lymphocytes % 20.6 Monocytes % 6.6 Eosinophils % 3.4 Basophils % 0.4 Nucleated Red Blood 0.0 Cells % Immature Granulocytes # 0.110 H Neutrophils # 8.5 H Lymphocytes # 2.6 Monocytes # 0.8 Eosinophils # 0.4 Basophils # 0.1 Nucleated Red Blood 0.0 Cells # Sodium Level 139 Potassium Level 4.0 Chloride Level 110 Carbon Dioxide Level 24 Anion Gap 5 Blood Urea Nitrogen 10 Creatinine 1.57 H Est Glomerular Filtrat 46 L Rate mL/min Glucose Level 103 Calcium Level 8.3 L Phosphorus Level 3.2 Magnesium Level 1.5 L Total Bilirubin 0.4 Direct Bilirubin 0.00 Indirect Bilirubin 0.4 Aspartate Amino 52 H Transf (AST/SGOT) Alanine 73 H Aminotransferase (ALT/SG PT) Alkaline Phosphatase 68 Total Protein 5.5 L Albumin 2.7 L Globulin 2.80 Albumin/Globulin Ratio 0.96 Medications Medication Current Medications IV Flush (NS 3 ml) 3 ml PER PROTOCOL IV Last administered on 10/12/18 22:25; Admin Dose 3 ML; Start 10/10/18 at 13:00 Ondansetron HCl (Zofran Inj) 4 mg Q6H PRN IV NAUSEA/VOMITING Last administered on 10/15/18 00:24; Admin Dose 4 MG; Start 10/10/18 at 13:00 Alprazolam (Xanax) 0.5 mg Q8H PRN PO ANXIETY Last administered on 10/15/18 05:09; Admin Dose 0.5 MG; Start 10/10/18 at 13:00 Metoprolol Succinate (Toprol Xl) 50 mg BID PO Last administered on 10/14/18 21:05; Admin Dose 50 MG; Start 10/10/18 at 13:30 Tamsulosin HCl (Flomax) 0.4 mg HS PO Last administered on 10/14/18 21:05; Admin Dose 0.4 MG; Start 10/10/18 at 21:00 Diagnostic Test (Pha) (Accu-Chek) 1 ea 02 XX ; Start 10/11/18 at 02:00 Insulin Aspart (Novolog Insulin Pen) NOVOLOG *MILD* ALGORI... AC MEALS SC Last administered on 10/14/18 17:28; Admin Dose 1 UNIT; Start 10/10/18 at 17:25 Pantoprazole (Protonix Tab) 40 mg DAILY@06 PO Last administered on 10/15/18 05:05; Admin Dose 40 MG; Start 10/11/18 at 06:00 Metoclopramide HCl (Reglan) 10 mg Q6H PRN PO vomiting; Start 10/10/18 at 18:30 Miscellaneous Information 1 ea NOTE XX ; Start 10/11/18 at 12:00 Glucose (Glutose) 15 gm Q15M PRN PO DECREASED GLUCOSE; Start 10/11/18 at 12:00 Glucose (Glutose) 22.5 gm Q15M PRN PO DECREASED GLUCOSE; Start 10/11/18 at 12:00 Dextrose (D50w Syringe) 25 ml Q15M PRN IV DECREASED GLUCOSE; Start 10/11/18 at 12:00 Dextrose (D50w Syringe) 50 ml Q15M PRN IV DECREASED GLUCOSE; Start 10/11/18 at 12:00 Glucagon (Glucagen) 1 mg Q15M PRN IM DECREASED GLUCOSE; Start 10/11/18 at 12:00 Glucose (Glutose) 15 gm Q15M PRN BUCCAL DECREASED GLUCOSE; Start 10/11/18 at 12:00 Loperamide HCl (Imodium Cap) 2 mg Q6H PRN PO DIARRHEA Last administered on 10/11/18at 14:19; Admin Dose 2 MG; Start 10/11/18 at 14:30 Acetaminophen (Tylenol Tab) 500 mg Q6H PRN PO MILD PAIN(1-3)OR ELEVATED TEMP Last administered on 10/14/18at 00:37; Admin Dose 500 MG; Start 10/12/18 at 18:00 Escitalopram Oxalate (Lexapro) 5 mg DAILY PO Last administered on 10/14/18at 08:51; Admin Dose 5 MG; Start 10/13/18 at 10:30 Potassium Chloride 10 meq/ Potassium Phosphate 10 meq/ Sodium Chloride 1,007.2727 ml @ 100 mls/hr Q10H5M IV Last administered on 10/15/18at 01:53; Admin Dose 100 MLS/HR; Start 10/13/18 at 16:00 Zolpidem Tartrate (Ambien) 10 mg HS PRN PO INSOMNIA Last administered on 10/14/18at 22:03; Admin Dose 10 MG; Start 10/13/18 at 15:00 Magnesium Sulfate 3 gm/Dextrose 106 ml @ 35.333 mls/ hr ONCE ONCE IVPB ; Start 10/15/18 at 09:00; Stop 10/15/18 at 11:59 BERNARD SANDERS MD Oct 15, 2018 08:32
[2018-10-15] MEDS: INSULIN ASPART [NOVOLOG] 3 ML PEN SC SCH ×3 (08:45→17:34)
[2018-10-15] MEDS: METOPROLOL (XL) 50 MG TAB PO SCH ×2 (08:55→21:00)
[2018-10-15] MEDS: ESCITALOPRAM 10 MG TAB PO SCH (08:55)
[2018-10-15] MEDS ORDERED: MAGNESIUM SULFATE 3 GM in DEXTROSE 5% 100 ML IVPB ONE (09:00)
[2018-10-15] MEDS: ENOXAPARIN 40 MG/0.4 ML SYG SC SCH (09:40)
[2018-10-15 20:18] VITALS: BP 158/79; PULSE 58; RESP 18
[2018-10-15] MEDS: TAMSULOSIN (SR) 0.4 MG CAP PO SCH (20:21)
[2018-10-15] MEDS: ACCU-CHEK XX SCH (21:18)
[2018-10-15] MEDS: ACETAMINOPHEN 500 MG TAB PO PRN (22:47)
[2018-10-15] MEDS: ZOLPIDEM 5 MG TAB PO PRN (22:47)
--- NOTE | 2018-10-16 00:20 | CONS ---
DATE OF ADMISSION: 10/10/2018 DATE OF CONSULTATION: SUBJECTIVE: The patient has no significant complaints now. Occasional discomfort in the abdomen. C urrently, he is eating his dinner. He seems to be finishing up his dinner. No vomiting, no diarrhea . He had a soft stool today. PHYSICAL EXAMINATION: GENERAL: The patient is a 57-year-old white gentleman who at this time is alert. VITAL SIGNS: Temperature 98.0, pulse is 66, blood pressure 138/71. CARDIOVASCULAR: Normal heart sounds. RESPIRATORY: Normal breath sounds. ABDOMEN: Soft. LABORATORY WORKUP: I must mention that the serum lipase is 391 as of today, amylase is 55. Lipase w as 392 on the 5th of the month. It was 764 on the 3rd of the month. His AST is 469 on the 3rd of the month, ALT 274, alkaline phosphatase is 90. The liver functions hav e improved. The AST is , ALT is 135 so this was all trending downwards. The albumin is 2.5. P otassium 3.7, BUN 19, creatinine 1.61, calcium 7.1, phosphorus 2.0, magnesium 1.8. I must mention th at CAT scan of the abdomen and MRCP were done. They were all commented in the past. CAT scan showed diffuse fatty infiltration of the liver. The pancreas appeared to be within normal limits, early or mild pancreatitis appeared within normal limits on the CT. Mild thickening of the wall of the sigmoid colon. Extensive sigmoid diverticulosis, bilateral renal stones, fat containing bilateral inguinal hernia. The MRI showed fatty liver. Spleen is normal. Pancreas normal, gallbladder normal. No obstruction, no bilateral renal cortical thinning. Alpha fetoprotein is 1.39. CA 19-9 59.6, upper limit of the normal is up to 37, which is indicating mild elevation. Serum ferritin was 2050 on the 3rd of the month. Later on the ferritin came down to 1680. The last ferritin is 698 on the , which is today. Serum CEA is normal at 3.8. The pathology shows a rectal polyp as a villous adenoma. Polyp at 18 cm was inflammatory polyp. Res t of the gastroesophageal, terminal ileum, duodenal biopsies were all unremarkable. CLINICAL IMPRESSION: It seems to be reasonable to think that the patient had a mild pancreatitis on admission. Also, he has a mild alcoholic liver disease. There is no significant evidence to cause this cirrhosis because platelet count is normal. There is no pancytopenia, no splenomegaly. The serum alpha fetoprotein, CA 19-9 are normal. CEA is normal, so there is no occult malignancy. PLAN: At this time, I would order LORA and antimitochondrial antibody, serum copper, serum ceruloplas min, alpha-1 antitrypsin level, and it is to be noted hepatitis panel is negative. Dictated By: SHANNA KHALIL MD NC/NTS Conf#: [id number] DID#: [id number] CC: BERNARD SANDERS MD;*EndCC*
[2018-10-16 01:51] VITALS: BP 138/77; PULSE 60; RESP 18
--- NOTE | 2018-10-16 08:28 | PN ---
Date/Time of Note Date/Time of Note DATE: 10/16/18 TIME: 08:25 Assessment/Plan VTE Prophylaxis Risk score (from Nsg)>0 risk: 2 SCD applied (from Nsg): Yes Pharmacological prophylaxis: LMWH Lines/Catheters IV Catheter Type (from Nrsg): Saline Lock Urinary Cath still in place: No Assessment/Plan Assessment/Plan 1. Toe pain likley gout, best solution, colchicine and celebrex, avoid steroids b/o pancreatitis 2. Pancreatitis, with now again inc lipase, but no new sxs of abd pain, will av oid steroids, await gi comments 3. CHO control is reasonable 4. BP control is acceptable Result Diagram: 10/16/18 0426 10/16/18425 Results 24hrs Laboratory Tests Test 10/15/18 08:51 10/15/18 12:29 10/15/18 13:03 10/15/18 17:29 Bedside Glucose 99 151 154 Lab Scanned Report REFERENCE LAB Test 10/16/18 04:26 White Blood Count 9.8 # Red Blood Count 2.90 L Hemoglobin 9.4 L Hematocrit 27.8 L Mean Corpuscular 95.9 Volume Mean Corpuscular 32.4 Hemoglobin Mean Corpuscular 33.8 Hemoglobin Concent Red Cell Distribution 13.2 Width Platelet Count 258 Mean Platelet Volume 10.1 Immature Granulocytes 1.000 H % Neutrophils % 66.4 Lymphocytes % 21.0 Monocytes % 7.6 Eosinophils % 3.5 Basophils % 0.5 Nucleated Red Blood 0.0 Cells % Immature Granulocytes 0.100 H # Neutrophils # 6.5 Lymphocytes # 2.1 Monocytes # 0.8 Eosinophils # 0.3 Basophils # 0.1 Nucleated Red Blood 0.0 Cells # Sodium Level 139 Potassium Level 4.0 Chloride Level 110 Carbon Dioxide Level 23 Anion Gap 6 Blood Urea Nitrogen 13 Creatinine 1.57 H Est Glomerular 46 L Filtrat Rate mL/min Glucose Level 113 Calcium Level 8.7 Phosphorus Level 3.9 Magnesium Level 1.8 Total Bilirubin 0.4 Direct Bilirubin 0.00 Indirect Bilirubin 0.4 Aspartate Amino 42 Transf (AST/SGOT) Alanine 69 Aminotransferase (ALT /SGPT) Alkaline Phosphatase 74 Total Protein 5.4 L Albumin 2.8 L Globulin 2.60 Albumin/Globulin 1.07 Ratio Lipase 648 H Subjective 24 Hr Interval Summary Respiratory: No shortness of breath Cardiovascular: No chest pain, No lightheadedness Gastrointestinal: other (1 episode diarr last night, wihtout n or v and less bloated) Genitourinary: no complaints Musculoskeletal: other (right toe pain has inc) Exam/Review of Systems Exam Vitals Vital Signs Date Temp Pulse Resp B/P (MAP) Pulse Ox O2 O2 Flow FiO2 Time Delivery Rate 10/16/18 97.8 60 18 138/77 99 01:51 (97) 10/15/18 Room Air 07:34 10/12/18 2.0 14:54 Intake and Output 10/15/18 10/15/18 10/16/18 1515:00 23:00 07:00 IntakeIntake Total 556 ml BalanceBalance 556 ml Neck: No jvd Respiratory: clear to auscultation Cardiovascular: regular rate and rhythm Gastrointestinal: soft; No hepatomegaly, No splenomegaly Musculoskeletal: other (right toe sl warm and tender) Extremities: No edema Results Results 24hrs Laboratory Tests Test 10/15/18 08:51 10/15/18 12:29 10/15/18 13:03 10/15/18 17:29 Bedside Glucose 99 151 154 Lab Scanned Report REFERENCE LAB Test 10/16/18 04:26 White Blood Count 9.8 # Red Blood Count 2.90 L Hemoglobin 9.4 L Hematocrit 27.8 L Mean Corpuscular 95.9 Volume Mean Corpuscular 32.4 Hemoglobin Mean Corpuscular 33.8 Hemoglobin Concent Red Cell Distribution 13.2 Width Platelet Count 258 Mean Platelet Volume 10.1 Immature Granulocytes 1.000 H % Neutrophils % 66.4 Lymphocytes % 21.0 Monocytes % 7.6 Eosinophils % 3.5 Basophils % 0.5 Nucleated Red Blood 0.0 Cells % Immature Granulocytes 0.100 H # Neutrophils # 6.5 Lymphocytes # 2.1 Monocytes # 0.8 Eosinophils # 0.3 Basophils # 0.1 Nucleated Red Blood 0.0 Cells # Sodium Level 139 Potassium Level 4.0 Chloride Level 110 Carbon Dioxide Level 23 Anion Gap 6 Blood Urea Nitrogen 13 Creatinine 1.57 H Est Glomerular 46 L Filtrat Rate mL/min Glucose Level 113 Calcium Level 8.7 Phosphorus Level 3.9 Magnesium Level 1.8 Total Bilirubin 0.4 Direct Bilirubin 0.00 Indirect Bilirubin 0.4 Aspartate Amino 42 Transf (AST/SGOT) Alanine 69 Aminotransferase (ALT /SGPT) Alkaline Phosphatase 74 Total Protein 5.4 L Albumin 2.8 L Globulin 2.60 Albumin/Globulin 1.07 Ratio Lipase 648 H Medications Medication Current Medications IV Flush (NS 3 ml) 3 ml PER PROTOCOL IV Last administered on 10/12/18at 22:25; Admin Dose 3 ML; Start 10/10/18 at 13:00 Ondansetron HCl (Zofran Inj) 4 mg Q6H PRN IV NAUSEA/VOMITING Last administered on 10/15/18at 00:24; Admin Dose 4 MG; Start 10/10/18 at 13:00 Metoprolol Succinate (Toprol Xl) 50 mg BID PO Last administered on 10/15/18at 08:55; Admin Dose 50 MG; Start 10/10/18 at 13:30 Tamsulosin HCl (Flomax) 0.4 mg HS PO Last administered on 10/15/18at 20:21; Admin Dose 0.4 MG; Start 10/10/18 at 21:00 Diagnostic Test (Pha) (Accu-Chek) 1 ea 02 XX ; Start 10/11/18 at 02:00 Insulin Aspart (Novolog Insulin Pen) NOVOLOG *MILD* ALGORI... AC MEALS SC Last administered on 10/15/18at 17:34; Admin Dose 1 UNIT; Start 10/10/18 at 17:25 Metoclopramide HCl (Reglan) 10 mg Q6H PRN PO vomiting; Start 10/10/18 at 18:30 Miscellaneous Information 1 ea NOTE XX ; Start 10/11/18 at 12:00 Glucose (Glutose) 15 gm Q15M PRN PO DECREASED GLUCOSE; Start 10/11/18 at 12:00 Glucose (Glutose) 22.5 gm Q15M PRN PO DECREASED GLUCOSE; Start 10/11/18 at 12:00 Dextrose (D50w Syringe) 25 ml Q15M PRN IV DECREASED GLUCOSE; Start 10/11/18 at 12:00 Dextrose (D50w Syringe) 50 ml Q15M PRN IV DECREASED GLUCOSE; Start 10/11/18 at 12:00 Glucagon (Glucagen) 1 mg Q15M PRN IM DECREASED GLUCOSE; Start 10/11/18 at 12:00 Glucose (Glutose) 15 gm Q15M PRN BUCCAL DECREASED GLUCOSE; Start 10/11/18 at 12 :00 Acetaminophen (Tylenol Tab) 500 mg Q6H PRN PO MILD PAIN(1-3)OR ELEVATED TEMP Last administered on 10/15/18 22:47; Admin Dose 500 MG; Start 10/12/18 at 18:00 Escitalopram Oxalate (Lexapro) 5 mg DAILY PO Last administered on 10/15/18 08:55; Admin Dose 5 MG; Start 10/13/18 at 10:30 Zolpidem Tartrate (Ambien) 10 mg HS PRN PO INSOMNIA Last administered on 10/15/18 22:47; Admin Dose 10 MG; Start 10/13/18 at 15:00 Enoxaparin Sodium (Lovenox) 40 mg DAILY SC Last administered on 10/15/18 09:40; Admin Dose 40 MG; Start 10/15/18 at 09:00 Alprazolam (Xanax) 0.5 mg BID PRN PO ANXIETY Last administered on 10/15/18 20:28; Admin Dose 0.5 MG; Start 10/15/18 at 08:30 Celecoxib (Celebrex) 100 mg BID PO ; Start 10/16/18 at 09:00; Stop 10/16/18 at 23:00; Status UNV Colchicine (Colchicine) 0.6 mg BID PO ; Start 10/16/18 at 09:00; Stop 10/16/18 at 23:00; Status UNV Ranitidine HCl (Zantac) 150 mg HS PO ; Start 10/16/18 at 21:00; Status UNV Pantoprazole (Protonix Tab) 40 mg AM PO ; Start 10/16/18 at 09:00; Status UNV BERNARD SANDERS MD Oct 16, 2018 08:28
[2018-10-16 08:29] VITALS: BP 143/76; PULSE 55; RESP 18
[2018-10-16] MEDS: INSULIN ASPART [NOVOLOG] 3 ML PEN SC SCH ×3 (08:30→18:06)
[2018-10-16] MEDS: ESCITALOPRAM 10 MG TAB PO SCH (08:33)
[2018-10-16] MEDS: METOPROLOL (XL) 50 MG TAB PO SCH ×2 (08:33→20:03)
[2018-10-16] MEDS: ENOXAPARIN 40 MG/0.4 ML SYG SC SCH (08:41)
[2018-10-16] MEDS: PANTOPRAZOLE (EC) 40 MG TAB PO SCH (09:42)
[2018-10-16] MEDS: CELECOXIB 100 MG CAP PO SCH ×2 (09:42→20:01)
[2018-10-16] MEDS: COLCHICINE 0.6 MG CAP PO SCH ×2 (09:42→20:02)
[2018-10-16] MEDS: CREON (12k-38k-60k) 1 CAP PO SCH ×2 (12:35→18:05)
[2018-10-16 14:51] VITALS: BP 142/78; PULSE 61; RESP 20
[2018-10-16 20:00] VITALS: PULSE 61; RESP 18
[2018-10-16] MEDS: ACETAMINOPHEN 500 MG TAB PO PRN (20:01)
[2018-10-16] MEDS: TAMSULOSIN (SR) 0.4 MG CAP PO SCH (20:01)
[2018-10-16] MEDS: ALPRAZOLAM 0.5 MG TAB PO PRN (20:02)
[2018-10-16] MEDS ORDERED: RANITIDINE 150 MG TAB PO SCH (21:00)
[2018-10-16] MEDS: ACCU-CHEK XX SCH (21:53)
[2018-10-16] MEDS: ZOLPIDEM 5 MG TAB PO PRN (22:09)
[2018-10-17 02:33] VITALS: BP 136/77; PULSE 59; RESP 20
--- NOTE | 2018-10-17 07:36 | CONS ---
Assessment/Plan Assessment/Plan Hospital Course (Demo Recall) 1) pancreatitis with liver inflammation CT and MRI only show fatty liver pt states he is only a social drinker and no alcohol for 10 days his CBC dif does not show an increase in his lymphocytes or monocytes which make a viral etiology less likely no classic symptoms for a viral disease other than his sore throat 3 weeks ago but his symptoms pre date that his ESR is WNL doubt he has CMV or EBV but CMV can cause pancreatitis will check CMV and EBV serology and get CMV pcr will also check RPR, parvo B19 upper and lower endoscopy is planned liver enzymes and pancreatitis enzymes are improving 10/15 - further improvement with LFT's lipase to be added to a.m. labs RPR was neg, viral serologies are pending continue off antibiotics, WBC continues to improve without antibiotics and likely related to pancreatitis elevated procalcitonin is also in response to pancreatitis will follow up on viral etiologies and if positive will inform Dr. Arrieta 10/17 - CMV pcr was neg and EBV showed past infection but no re-activation noted WBC is back to WNL just parvo b19 is pending for viral etiology for pancreatitis pt does have a family member diagnosed with amyloidosis which can cause pancreatitis and amyloidosis is known to commonly have renal involvement 2) ARF urine does not suggest infection this is improving with hydration 10/15 - continue slow improvement 10/17 - creatinine is stable but still elevated Kidney bx? 3) R big toe pain MRI was reportedly done but no report yet no acute swelling noted today Consultation Date/Type/Reason Admit Date/Time Oct 10, 2018 at 11:07 Initial Consult Date 10/12/18 Type of Consult ID Date/Time of Note DATE: 10/17/18 TIME: 07:26 24 HR Interval Summary Free Text/Dictation pt has mild indigestion R big toe pain is better but still present no V, D, SOB, cough Exam/Review of Systems Exam Vitals Vital Signs Date Temp Pulse Resp B/P (MAP) Pulse Ox O2 O2 Flow FiO2 Time Delivery Rate 10/17/18 98.5 59 20 136/77 95 02:33 (96) 10/16/18 Room Air 14:51 Intake and Output 10/16/18 10/16/18 10/17/18 1515:00 23:00 07:00 IntakeIntake Total 240 ml BalanceBalance 240 ml Constitutional: alert, oriented Eyes: nl sclera Respiratory: clear to auscultation Cardiovascular: regular rate and rhythm Gastrointestinal: soft, other (mild upper mid abd pain) Extremities: other (R big toe no swelling noted dull light brown color noted around PIP) Results Result Diagram: 10/17/18 0454 10/17/18 0455 Results 24hrs Laboratory Tests Test 10/16/18 08:30 10/16/18 08:39 10/16/18 12:34 10/16/18 18:03 Bedside Glucose 113 141 142 Uric Acid 5.4 Test 10/17/18 04:54 10/17/18 04:55 White Blood Count 8.6 Red Blood Count 3.00 L Hemoglobin 9.7 L Hematocrit 29.1 L Mean Corpuscular 97.0 Volume Mean Corpuscular 32.3 Hemoglobin Mean Corpuscular 33.3 Hemoglobin Concent Red Cell Distribution 13.2 Width Platelet Count 261 Mean Platelet Volume 10.1 Immature Granulocytes 1.500 H % Neutrophils % 59.2 Lymphocytes % 26.4 Monocytes % 7.8 Eosinophils % 4.6 Basophils % 0.5 Nucleated Red Blood 0.0 Cells % Immature Granulocytes 0.130 H # Neutrophils # 5.1 Lymphocytes # 2.3 Monocytes # 0.7 Eosinophils # 0.4 Basophils # 0.0 Nucleated Red Blood 0.0 Cells # Phosphorus Level 3.9 Magnesium Level 1.6 L Sodium Level 141 Potassium Level 4.1 Chloride Level 110 Carbon Dioxide Level 23 Anion Gap 8 Blood Urea Nitrogen 15 Creatinine 1.62 H Est Glomerular Filtrat 44 L Rate mL/min Glucose Level 108 Calcium Level 9.0 Total Bilirubin 0.4 Direct Bilirubin 0.00 Indirect Bilirubin 0.4 Aspartate Amino 50 H Transf (AST/SGOT) Alanine 76 H Aminotransferase (ALT/ SGPT) Alkaline Phosphatase 94 Total Protein 5.6 L Albumin 2.9 L Globulin 2.70 Albumin/Globulin Ratio 1.07 Lipase 623 H Medications Medication Current Medications IV Flush (NS 3 ml) 3 ml PER PROTOCOL IV Last administered on 10/12/18at 22:25; Admin Dose 3 ML; Start 10/10/18 at 13:00 Ondansetron HCl (Zofran Inj) 4 mg Q6H PRN IV NAUSEA/VOMITING Last administered on 10/15/18at 00:24; Admin Dose 4 MG; Start 10/10/18 at 13:00 Metoprolol Succinate (Toprol Xl) 50 mg BID PO Last administered on 10/16/18 20:03; Admin Dose 50 MG; Start 10/10/18 at 13:30 Tamsulosin HCl (Flomax) 0.4 mg HS PO Last administered on 10/16/18 20:01; Admin Dose 0.4 MG; Start 10/10/18 at 21:00 Diagnostic Test (Pha) (Accu-Chek) 1 ea 02 XX ; Start 10/11/18 at 02:00 Insulin Aspart (Novolog Insulin Pen) NOVOLOG *MILD* ALGORI... AC MEALS SC Last administered on 10/16/18 18:06; Admin Dose 1 UNIT; Start 10/10/18 at 17:25 Metoclopramide HCl (Reglan) 10 mg Q6H PRN PO vomiting; Start 10/10/18 at 18:30 Miscellaneous Information 1 ea NOTE XX ; Start 10/11/18 at 12:00 Glucose (Glutose) 15 gm Q15M PRN PO DECREASED GLUCOSE; Start 10/11/18 at 12:00 Glucose (Glutose) 22.5 gm Q15M PRN PO DECREASED GLUCOSE; Start 10/11/18 at 12:00 Dextrose (D50w Syringe) 25 ml Q15M PRN IV DECREASED GLUCOSE; Start 10/11/18 at 12:00 Dextrose (D50w Syringe) 50 ml Q15M PRN IV DECREASED GLUCOSE; Start 10/11/18 at 12:00 Glucagon (Glucagen) 1 mg Q15M PRN IM DECREASED GLUCOSE; Start 10/11/18 at 12:00 Glucose (Glutose) 15 gm Q15M PRN BUCCAL DECREASED GLUCOSE; Start 10/11/18 at 12:00 Acetaminophen (Tylenol Tab) 500 mg Q6H PRN PO MILD PAIN(1-3)OR ELEVATED TEMP Last administered on 10/16/18at 20:01; Admin Dose 500 MG; Start 10/12/18 at 18:00 Escitalopram Oxalate (Lexapro) 5 mg DAILY PO Last administered on 10/16/18 08:33; Admin Dose 5 MG; Start 10/13/18 at 10:30 Zolpidem Tartrate (Ambien) 10 mg HS PRN PO INSOMNIA Last administered on 10/16/18 22:09; Admin Dose 10 MG; Start 10/13/18 at 15:00 Enoxaparin Sodium (Lovenox) 40 mg DAILY SC Last administered on 10/16/18 08:41; Admin Dose 40 MG; Start 10/15/18 at 09:00 Alprazolam (Xanax) 0.5 mg BID PRN PO ANXIETY Last administered on 10/16/18 20:02; Admin Dose 0.5 MG; Start 10/15/18 at 08:30 Ranitidine HCl (Zantac) 150 mg HS PO Last administered on 10/16/18 22:09; Admin Dose 150 MG; Start 10/16/18 at 21:00 Pantoprazole (Protonix Tab) 40 mg AM PO Last administered on 10/16/18 09:42; Admin Dose 40 MG; Start 10/16/18 at 09:00 Amylase/Lipase/ Protease (CREON (12k-38k-60k)) 1 cap WITH MEALS PO Last administered on 10/16/18 18:05; Admin Dose 1 CAP; Start 10/16/18 at 11:40 LELO BEST MD Oct 17, 2018 07:36
[2018-10-17 08:23] VITALS: BP 126/83; PULSE 54; RESP 20
--- NOTE | 2018-10-17 08:25 | PN ---
Date/Time of Note Date/Time of Note DATE: 10/17/18 TIME: 08:21 Assessment/Plan VTE Prophylaxis Risk score (from Ns)>0 risk: 2 SCD applied (from Ns): Yes Pharmacological prophylaxis: LMWH Lines/Catheters IV Catheter Type (from Nrsg): Saline Lock Urinary Cath still in place: No Assessment/Plan Assessment/Plan 1. Pancreatitis, ? chronic, stable 2. ARF, resolved 3. Toe pain is better, doubt gout, xray and mri rev---? degenerative 4. DM, Stable 5. Will dc today and see in 1 week 6. Mood disorder, stable Result Diagram: 10/17/18 0454 10/17/18 0455 Results 24hrs Laboratory Tests Test 10/16/18 08:30 10/16/18 08:39 10/16/18 12:34 10/16/18 18:03 Bedside Glucose 113 141 142 Uric Acid 5.4 Test 10/17/18 04:54 10/17/18 04:55 White Blood Count 8.6 Red Blood Count 3.00 L Hemoglobin 9.7 L Hematocrit 29.1 L Mean Corpuscular 97.0 Volume Mean Corpuscular 32.3 Hemoglobin Mean Corpuscular 33.3 Hemoglobin Concent Red Cell Distribution 13.2 Width Platelet Count 261 Mean Platelet Volume 10.1 Immature Granulocytes 1.500 H % Neutrophils % 59.2 Lymphocytes % 26.4 Monocytes % 7.8 Eosinophils % 4.6 Basophils % 0.5 Nucleated Red Blood 0.0 Cells % Immature Granulocytes 0.130 H # Neutrophils # 5.1 Lymphocytes # 2.3 Monocytes # 0.7 Eosinophils # 0.4 Basophils # 0.0 Nucleated Red Blood 0.0 Cells # Phosphorus Level 3.9 Magnesium Level 1.6 L Sodium Level 141 Potassium Level 4.1 Chloride Level 110 Carbon Dioxide Level 23 Anion Gap 8 Blood Urea Nitrogen 15 Creatinine 1.62 H Est Glomerular Filtrat 44 L Rate mL/min Glucose Level 108 Calcium Level 9.0 Total Bilirubin 0.4 Direct Bilirubin 0.00 Indirect Bilirubin 0.4 Aspartate Amino 50 H Transf (AST/SGOT) Alanine 76 H Aminotransferase (ALT/ SGPT) Alkaline Phosphatase 94 Total Protein 5.6 L Albumin 2.9 L Globulin 2.70 Albumin/Globulin Ratio 1.07 Lipase 623 H Subjective 24 Hr Interval Summary Respiratory: No cough, No shortness of breath Cardiovascular: No chest pain Gastrointestinal: other (mild bloating without n or v and no diarrhea) Genitourinary: No no complaints Musculoskeletal: other (right firt toe hurts only with "bending it") Exam/Review of Systems Exam Vitals Vital Signs Date Temp Pulse Resp B/P (MAP) Pulse Ox O2 O2 Flow FiO2 Time Delivery Rate 10/17/18 98.5 59 20 136/77 95 02:33 (96) 10/16/18 Room Air 14:51 Intake and Output 10/16/18 10/16/18 10/17/18 1515:00 23:00 07:00 IntakeIntake Total 240 ml BalanceBalance 240 ml Neck: No jvd Respiratory: clear to auscultation Cardiovascular: regular rate and rhythm Gastrointestinal: No distended, No tender Musculoskeletal: other (rihgt first toe was no warm or red) Extremities: No edema Results Results 24hrs Laboratory Tests Test 10/16/18 08:30 10/16/18 08:39 10/16/18 12:34 10/16/18 18:03 Bedside Glucose 113 141 142 Uric Acid 5.4 Test 10/17/18 04:54 10/17/18 04:55 White Blood Count 8.6 Red Blood Count 3.00 L Hemoglobin 9.7 L Hematocrit 29.1 L Mean Corpuscular 97.0 Volume Mean Corpuscular 32.3 Hemoglobin Mean Corpuscular 33.3 Hemoglobin Concent Red Cell Distribution 13.2 Width Platelet Count 261 Mean Platelet Volume 10.1 Immature Granulocytes 1.500 H % Neutrophils % 59.2 Lymphocytes % 26.4 Monocytes % 7.8 Eosinophils % 4.6 Basophils % 0.5 Nucleated Red Blood 0.0 Cells % Immature Granulocytes 0.130 H # Neutrophils # 5.1 Lymphocytes # 2.3 Monocytes # 0.7 Eosinophils # 0.4 Basophils # 0.0 Nucleated Red Blood 0.0 Cells # Phosphorus Level 3.9 Magnesium Level 1.6 L Sodium Level 141 Potassium Level 4.1 Chloride Level 110 Carbon Dioxide Level 23 Anion Gap 8 Blood Urea Nitrogen 15 Creatinine 1.62 H Est Glomerular Filtrat 44 L Rate mL/min Glucose Level 108 Calcium Level 9.0 Total Bilirubin 0.4 Direct Bilirubin 0.00 Indirect Bilirubin 0.4 Aspartate Amino 50 H Transf (AST/SGOT) Alanine 76 H Aminotransferase (ALT/ SGPT) Alkaline Phosphatase 94 Total Protein 5.6 L Albumin 2.9 L Globulin 2.70 Albumin/Globulin Ratio 1.07 Lipase 623 H Medications Medication Current Medications IV Flush (NS 3 ml) 3 ml PER PROTOCOL IV Last administered on 10/12/18at 22:25; Admin Dose 3 ML; Start 10/10/18 at 13:00 Ondansetron HCl (Zofran Inj) 4 mg Q6H PRN IV NAUSEA/VOMITING Last administered on 10/15/18at 00:24; Admin Dose 4 MG; Start 10/10/18 at 13:00 Metoprolol Succinate (Toprol Xl) 50 mg BID PO Last administered on 10/16/18at 20:03; Admin Dose 50 MG; Start 10/10/18 at 13:30 Tamsulosin HCl (Flomax) 0.4 mg HS PO Last administered on 10/16/18at 20:01; Admin Dose 0.4 MG; Start 10/10/18 at 21:00 Diagnostic Test (Pha) (Accu-Chek) 1 ea 02 XX ; Start 10/11/18 at 02:00 Insulin Aspart (Novolog Insulin Pen) NOVOLOG *MILD* ALGORI... AC MEALS SC Last administered on 10/16/18at 18:06; Admin Dose 1 UNIT; Start 10/10/18 at 17:25 Metoclopramide HCl (Reglan) 10 mg Q6H PRN PO vomiting; Start 10/10/18 at 18:30 Miscellaneous Information 1 ea NOTE XX ; Start 10/11/18 at 12:00 Glucose (Glutose) 15 gm Q15M PRN PO DECREASED GLUCOSE; Start 10/11/18 at 12:00 Glucose (Glutose) 22.5 gm Q15M PRN PO DECREASED GLUCOSE; Start 10/11/18 at 12:00 Dextrose (D50w Syringe) 25 ml Q15M PRN IV DECREASED GLUCOSE; Start 10/11/18 at 12:00 Dextrose (D50w Syringe) 50 ml Q15M PRN IV DECREASED GLUCOSE; Start 10/11/18 at 12:00 Glucagon (Glucagen) 1 mg Q15M PRN IM DECREASED GLUCOSE; Start 10/11/18 at 12:00 Glucose (Glutose) 15 gm Q15M PRN BUCCAL DECREASED GLUCOSE; Start 10/11/18 at 12:00 Acetaminophen (Tylenol Tab) 500 mg Q6H PRN PO MILD PAIN(1-3)OR ELEVATED TEMP Last administered on 10/16/18 20:01; Admin Dose 500 MG; Start 10/12/18 at 18:00 Escitalopram Oxalate (Lexapro) 5 mg DAILY PO Last administered on 10/16/18 08:33; Admin Dose 5 MG; Start 10/13/18 at 10:30 Zolpidem Tartrate (Ambien) 10 mg HS PRN PO INSOMNIA Last administered on 10/16/18 22:09; Admin Dose 10 MG; Start 10/13/18 at 15:00 Enoxaparin Sodium (Lovenox) 40 mg DAILY SC Last administered on 10/16/18 08:41; Admin Dose 40 MG; Start 10/15/18 at 09:00 Alprazolam (Xanax) 0.5 mg BID PRN PO ANXIETY Last administered on 10/16/18 20:02; Admin Dose 0.5 MG; Start 10/15/18 at 08:30 Ranitidine HCl (Zantac) 150 mg HS PO Last administered on 10/16/18 22:09; Admin Dose 150 MG; Start 10/16/18 at 21:00 Pantoprazole (Protonix Tab) 40 mg AM PO Last administered on 10/16/18 09:42; Admin Dose 40 MG; Start 10/16/18 at 09:00 Amylase/Lipase/ Protease (CREON (12k-38k-60k)) 1 cap WITH MEALS PO Last administered on 10/16/18 18:05; Admin Dose 1 CAP; Start 10/16/18 at 11:40 BERNARD SANDERS MD Oct 17, 2018 08:25
[2018-10-17] MEDS ORDERED: METO-319 PO (08:29)
[2018-10-17] MEDS ORDERED: ESCI10TA48 PO (08:29)
[2018-10-17] MEDS ORDERED: ALPR0.5T6 PO (08:29)
[2018-10-17] MEDS ORDERED: Acetaminophen PO (08:29)
[2018-10-17] MEDS ORDERED: PANT40TA4 PO (08:29)
[2018-10-17] MEDS ORDERED: LIPA1CAP4 PO (08:29)
[2018-10-17] MEDS ORDERED: TAMS-14 PO (08:29)
[2018-10-17] MEDS ORDERED: MAGNESIUM SULFATE 3 GM in DEXTROSE 5% 100 ML IVPB ONE (08:30)
[2018-10-17] MEDS: INSULIN ASPART [NOVOLOG] 3 ML PEN SC SCH ×2 (08:40→13:07)
[2018-10-17] MEDS: ESCITALOPRAM 10 MG TAB PO SCH (08:40)
[2018-10-17] MEDS: CREON (12k-38k-60k) 1 CAP PO SCH ×2 (08:40→13:08)
[2018-10-17] MEDS: METOPROLOL (XL) 50 MG TAB PO SCH (08:41)
[2018-10-17] MEDS: PANTOPRAZOLE (EC) 40 MG TAB PO SCH (08:42)
[2018-10-17] MEDS: ENOXAPARIN 40 MG/0.4 ML SYG SC SCH (08:48)
[2018-10-17] MEDS ORDERED: MAGNESIUM SULFATE 3 GM in DEXTROSE 5% 100 ML IV ONE (10:00)
[2018-10-17 14:01] VITALS: BP 140/78; PULSE 62; RESP 18
--- NOTE | 2018-10-22 09:40 | DS ---
DATE OF ADMISSION: 10/10/2018 DATE OF DISCHARGE: 10/17/2018 HISTORY OF PRESENT ILLNESS: This 57-year-old male admitted with fatigue, abnormal liver tests and ma rkedly reduced appetite with known diabetes, prior history of pancreatitis, hyperlipidemia and hypert ension. PERTINENT PHYSICAL EXAMINATION ON ADMISSION: VITAL SIGNS: Blood pressure 121/78, pulse 80, respirations were 18. He was afebrile. CARDIOPULMONARY: Exam was unrevealing. ABDOMEN: Slight distention. No organomegaly. Equivocal 1+ epigastric tenderness. No lower quadran t tenderness. EXTREMITIES: No edema. LABORATORY AND DIAGNOSTIC STUDIES: CBC on admission, hematocrit 39.3, white count and platelet count were normal. On discharge, hematocrit 29.1, white count 8600, platelet count 261,000. Highest whit e count was 21,200 on 10/13/2018. Chemistries on admission, electrolytes were normal. Creatinine 2. 74, BUN 47, calcium 8.7, phosphorus 4.3, mag 1.1, iron 171, TIBC 177, saturation 97%, ferritin was 20 50. AST and ALT was 469 and 274, alkaline phosphatase and bilirubin were normal. Amylase 78 and lip ase 764, alpha fetoprotein 1.39, CEA 3.8. CA 19.9 elevated to 59.6. TSH was normal. B12 greater th an 1000. On 10/11/2018 AST and ALT 252 and 208, creatinine 2.07, hemoglobin A1c 6.8 on 10/11/2018. Repeat iron studies on 10/11/2018 revealed saturation of 77%. Procalcitonin was elevated at 0.66. O n 10/12/2018, AST and ALT were 112 and 135, lipase 392, Vitamin D3 was 7. On 10/14/2018, AST and ALT 61 and 84, lipase 391, amylase 55. On 10/15/2018, iron saturation was 20%, TIBC 186. Iron 37, ferr itin 698. AST and ALT 52 and 73, creatinine was 1.57. On 10/17/2018, creatinine 1.62. AST and ALT 50 and 76. Alpha 1 antitrypsin was 150, ceruloplasmin 27, lipase 623. RPR was nonreactive. CMV IgM was negative. IgG was positive. Juanito-Beltran virus serology revealed old infection, antimitochondr ial antibody was negative. Stool for occult blood was negative. Hereditary hemochromatosis DNA muta tion analysis was negative. Parvovirus serology was negative. CMV viral serology was negative. The patient underwent colonoscopy and endoscopy, both of which were unrevealing. He had an ultrasound of the abdomen which revealed an echogenic coarse liver thought compatible with hepatic steatosis. No biliary dilatation or cholelithiasis. Ultrasound of the pelvis revealed an un remarkable bladder ultrasound with no significant residual urine volume. CT abdomen and the pelvis r evealed diffuse fatty infiltration of the liver, pancreas was thought to be normal. No evidence of b owel obstruction. The appendix was normal. There was mild thickening of the wall of the sigmoid col on, nonobstructing bilateral renal stones, fat containing bilateral inguinal hernias. MRI of the abd omen, fatty liver with no evidence of cirrhosis. No abnormal masses. Spleen was normal. Pancreas w as normal. There was no gross evidence of inflammatory changes. Pancreatic duct was normal. Gallbl adder was normal with no intrahepatic or extrahepatic dilatation. Foot MRI, no acute fracture or str ess reaction identified. 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 Uric acid level was 5.4. HOSPITAL COURSE: Was centered around understanding the cause of his weight loss, anorexia and treatm ent of his volume depletion. He was seen in GI consultation as well as infectious disease consultati on. Colonoscopy was unrevealing for inflammatory bowel disease and endoscopy revealed no abnormaliti es. Patient was treated with protein pump inhibitors and Reglan for intermittent nausea and early sa tiety. His nausea and inability to eat solid food lingered up until the day of his eventual discharg e. Infectious disease consultation provided no evidence for any infection. He additionally had diff iculty weightbearing involving his right foot because of rather exquisite right toe pain. Uric acid did not support gout. MRI of the involved toe was noted above pointing to the degenerative cause for his pain. He did receive several doses of colchicine and Celebrex with 50% improvement. At time of discharge, he was stable, able to eat and ambulatory. IMPRESSION: 1. Recurrent pancreatitis with still abnormal elevated lipase without evidence of gallbladder diseas e and pancreatic imaging unrevealing. 2. 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 3. Acute renal failure that resolved, now with creatinine back to baseline. 4. Diabetes. Control was satisfactory in the hospital. 5. Anemia, multifactorial with no evidence of GI bleeding, having undergone endoscopy and colonoscop y. 6. Right toe pain, likely degenerative. PLAN: The patient is stable at the time of discharge. I will be seeing him in 1 weeks' time. MEDICATIONS ON DISCHARGE: Include: 1. Flomax 0.4 mg. 2. Protonix 40 mg per day. 3. Metoprolol 50 mg b.i.d. 4. Creon 12,000 one tablet t.i.d. 5. Lexapro 10 mg per day. 6. Xanax 0.5 b.i.d. 7. Tylenol p.r.n. 8. Avoid high fat diet. Dictated By: BERNARD LUNA/LETICIA Conf#: [id number] DID#: [id number]
== END 2018-10-17 14:55 | disposition home or self-care (01) | DRG 439 ==
LOC: MS1 11:07
PROVIDERS: ADMIT Internal Medicine; ATTEND Internal Medicine
PROC: 0DBP8ZX Excision of Rectum, Via Natural or Artificial Opening Endoscopic, Diagnostic (ICD-10-PCS; 2018-10-12)
PROC: 0DBN8ZX Excision of Sigmoid Colon, Via Natural or Artificial Opening Endoscopic, Diagnostic (ICD-10-PCS; 2018-10-12)
PROC: 0DB98ZX Excision of Duodenum, Via Natural or Artificial Opening Endoscopic, Diagnostic (ICD-10-PCS; principal; 2018-10-12 08:00)
PROC: 0DB68ZX Excision of Stomach, Via Natural or Artificial Opening Endoscopic, Diagnostic (ICD-10-PCS; 2018-10-12 08:00)
PROC: 0DB58ZX Excision of Esophagus, Via Natural or Artificial Opening Endoscopic, Diagnostic (ICD-10-PCS; 2018-10-12 08:00)
DX: K86.1 Other chronic pancreatitis (principal); N17.9 Acute kidney failure, unspecified; E83.42 Hypomagnesemia; E83.39 Other disorders of phosphorus metabolism; E83.51 Hypocalcemia; D12.8 Benign neoplasm of rectum; K20.8 Other esophagitis; K29.30 Chronic superficial gastritis without bleeding; K57.30 Diverticulosis of large intestine without perforation or abscess without bleeding; K64.4 Residual hemorrhoidal skin tags; Z79.82 Long term (current) use of aspirin; E78.5 Hyperlipidemia, unspecified; K70.10 Alcoholic hepatitis without ascites; F32.9 Major depressive disorder, single episode, unspecified; I12.9 Hypertensive chronic kidney disease with stage 1 through stage 4 chronic kidney disease, or unspecified chronic kidney disease; E11.22 Type 2 diabetes mellitus with diabetic chronic kidney disease; N18.9 Chronic kidney disease, unspecified; K76.0 Fatty (change of) liver, not elsewhere classified; K70.9 Alcoholic liver disease, unspecified; M19.071 Primary osteoarthritis, right ankle and foot; K63.5 Polyp of colon
CPT/HCPCS: 71046; 73660; 73718; 74176; 74181; 76700; 76856; 80048; 80053; 80307; 81003; 82103; 82105; 82150; 82270; 82306; 82378; 82390; 82570; 82607; 82728; 82962; 83036; 83540; 83690; 83735; 84100; 84132; 84145; 84300; 84443; 84560; 85025; 85610; 85651; 85730; 86255; 86301; 86592; 86644; 86664; 87045; 87075; 87086; 87497; 88305; 88312; 88313; 93005; 97161; J1650; J1815; J2405; J3475; J3480; J7030; Q9967